=== PATIENT | female | born 1980 | race Caucasian/White ===

== ENCOUNTER 2017-01-31 19:52 | Inpatient (IN) ==
[2017-01-31] MEDS ORDERED: Ondansetron 4 MG/2 ML VIAL IVP ONE (23:00)
[2017-01-31] MEDS ORDERED: *HR* HYDROmorphone (PF) 1 MG/ML SYRINGE IVP ONE (23:00)
[2017-01-31] MEDS ORDERED: 0.9 % Sodium Chloride 1,000 ML IVC ONE ×2 (23:00→23:52)
[2017-01-31] MEDS ORDERED: Hyoscyamine 0.5 MG/ML MLS IVP ONE (23:02)
--- NOTE | 2017-01-31 23:04 | Emergency Department Note ---
Disposition Clinical Impression: Incarcerated ventral hernia, Hyperglycemia Abdominal pain Qualifiers: Abdominal location: unspecified location Qualified Code(s): R10.9 - Unspecified abdominal pain Disposition: Admitted As Inpatient Condition: Fair General Adult HPI - General Chief complaint: ED Abdominal Pain Stated complaint: n/v/fever x3 days Time Seen by Provider: 01/31/17 22:56 Source: patient Limitations: no limitations Nursing Notes Reviewed: Yes Vital Signs Reviewed: Yes - History of Present Illness HPI Narrative: 36-year-old female who reports that she has had 3 days of nausea with vomiting and diarrhea and abdominal pain. She reports the pain is in her epigastrium. She denies having any blood in her vomit. She reports decrease in the amount of urination. She reports that she is a diabetic but does not take any medications for it. She reports that she has not been taking her medications because she has had a sick child that she is taking care of. She is not taking medications for months. She does report a prior fever but not today. She states the pain is not constant but is intermittent. She states that it hurts worse if she eats. Radiation: non-radiation Pain Severity: severe Pain Scale: 8 Consistency: intermittent Improves with: nothing Worsens with: eating Associated symptoms: Reports: denies other symptoms Treatments Prior to Arrival: none - Related Data Home Medications Medication Instructions Recorded Confirmed No Known Home Drugs 02/01/17 02/01/17 Allergies Allergy/AdvReac Type Severity Reaction Status Date / Time Penicillins Allergy Rash Verified 01/31/17 20:05 IVP Dye Allergy Rash Uncoded 01/31/17 20:05 All systems ED: reviewed and negative except as stated. Constitutional: Denies: fever Eyes: Denies: vision change Cardiovascular: Denies: chest pain Respiratory: Denies: cough Gastrointestinal: Reports: abdominal pain, nausea, vomiting, diarrhea Genitourinary: Denies: dysuria Integumentary: Denies: rash Endocrine: Reports: fatigue Past Medical History - Past Medical History Medical history: Reports: diabetes Surgical history: Reports: Psychiatric history: Reports: no psych history [employer] history: Reports: spontaneous - Social History Smoking Status: Current every day smoker Smokeless Tobacco Status: No Alcohol use: Reports: none Drug use: Reports: none Physical Exam - General Limitations: no limitations General appearance: alert, in no apparent distress - Head Head exam: atraumatic - Eye Eye exam: Present: normal appearance, PERRL - ENT ENT exam: normal exam, normal oropharynx - Neck Neck exam: Present: normal inspection - Chest Chest inspection: Present: normal inspection - Respiratory Respiratory exam: Present: normal lung sounds bilaterally. Absent: respiratory distress - Cardiovascular Cardiovascular exam: Present: regular rate, normal rhythm - Abdominal Exam Abdominal exam: Present: soft, tenderness (epigastrum), normal bowel sounds. Absent: guarding, rebound - Extremities Exam Extremities exam: Present: normal inspection - Back Exam Back exam: Present: normal inspection - Neurological Exam Neurological exam: Present: alert, oriented X3 - Psychiatric Psychiatric exam: Present: normal affect, normal mood - Skin Skin exam: Present: warm, dry Course Course Narrative: Mild tachycardia w/ N/V/D. She does have significant abdominal pain on palpation, specifically midline. Will give IVF and obtain CT/labwork. She is in no acute distress. Anion gap of 11. large amount of ketones. CT shows likely incarcerated hernia with vascular compromise. I called and spoke with Dr Wong with surgery, he will come and evaluate the patient. Will obtain a lactate and start antibiotics. Vital Signs Temperature 97.6 F 01/31/17 20:05 Pulse Rate 101 01/31/17 20:05 Respiratory Rate 20 01/31/17 20:05 Blood Pressure 148/109 01/31/17 20:05 O2 Sat by Pulse Oximetry 99 01/31/17 20:05 Temperature 98.4 F 02/02/17 23:25 Pulse Rate 79 02/02/17 23:25 Respiratory Rate 16 02/02/17 23:25 Blood Pressure 139/89 02/02/17 23:25 O2 Sat by Pulse Oximetry 95 02/02/17 23:25 Oxygen Delivery Oxygen Delivery Room Air Medical Decision Making - Medical Records Medical records reviewed: Yes I reviewed the patient's medical records. - Lab Data Lab results reviewed: Yes I reviewed the patient's lab results. Result diagrams: 02/02/17 05:10 02/02/17 20:30 Lab Results 01/31/17 01/31/17 01/31/17 Range/Units 20:15 23:07 23:18 WBC 11.2 H (4.3-11.1) K/mcL RBC 6.23 H (3.82-4.97) M/mcL Hgb 17.3 H (11.5-15.4) g/dL Hct 52.0 H (35.3-44.9) % MCV 83.5 (83.0-100.0) fL MCH 27.8 L (28.0-33.3) pg MCHC 33.3 (31.6-35.5) g/dL RDW 13.0 (11.5-14.5) % Plt Count 421 H (140-400) K/mcL MPV 9.5 (9.4-12.4) fL Immature Gran % 0.5 (0-4) % Seg Neutrophils % 72.7 % Lymphocytes % 18.7 % Monocytes % 6.0 % Eosinophils % 1.7 % Basophils % 0.4 % Neutrophils # 8.2 (1.6-8.9) K/mcL Lymphocytes # 2.1 (0.6-4.6) K/mcL Monocytes # 0.7 (0.0-1.3) K/mcL Eosinophils # 0.2 (0.0-0.6) K/mcL Basophils # 0.0 (0.0-0.2) K/mcL VBG pH (7.32-7.42) pH Units VBG pCO2 (41-51) mmHg VBG pO2 (25-50) mmHg VBG HCO3 (21-27) mEq/L Sodium (136-145) mEq/L Potassium (3.5-5.1) mEq/L Chloride (98-107) mEq/L Carbon Dioxide (23-29) mEq/L BUN (6-20) mg/dL Creatinine (0.60-1.20) mg/dL Est GFR ( Amer) (> 60) Est GFR (Non-Af Amer) (> 60) BUN/Creatinine Ratio (6-26) Glucose (70-105) mg/dL POC Glucose 257 H (58-89) Est Mean Plasma Glucose mg/dl Hemoglobin A1c ( - 5.6) % Calculated Osmolality (280-300) Lactic Acid (0.5-2.2) mmol/L Calcium (8.6-10.3) mg/dL Magnesium (1.6-2.6) mg/dL Total Bilirubin (0.3-1.0) mg/dL Direct Bilirubin (0.0-0.2) mg/dL Indirect Bilirubin (0.0-1.2) mg/dL AST (13-39) Units/L ALT (7-52) Units/L Alkaline Phosphatase (34-104) Units/L Serum Total Protein (6.4-8.9) g/dL Albumin (3.5-5.7) g/dL Globulin (2.4-3.5) g/dL Albumin/Globulin Ratio (1.1-2.2) Lipase (11-82) Units/L Beta-Hydroxybutyric Acd (0.02-0.27) mmol/L Serum , Qual (Negative) Urine Color Yellow (Yellow) Urine Clarity Turbid A (Clear) Urine pH 5.5 (5.0-8.0) pH Units Ur Specific [place] > 1.030 H (1.010-1.025) Urine Protein 30 H (Neg-Trace) mg/dL Urine Glucose (UA) >=1000 H (Normal) mg/dL Urine Ketones >=160 H (Negative) mg/dL Urine Blood Negative (Negative) Urine Nitrite Negative (Negative) Urine Bilirubin Negative (Negative) Urine Urobilinogen Normal (Normal) mg/dL Ur Leukocyte Esterase Negative (Negative) Urine Microscopic RBC 0-3 (0-3) per hpf Urine Microscopic WBC 15-30 H (0-3) per hpf Ur Squamous Epith Cells Many H (None-Few) per lpf Urine Bacteria Many H (None-Few) per hpf Hyaline Casts None Seen (None-Few) per lpf Urine Yeast Moderate H (None Seen) per hpf Ur Culture Indicated? NO (NO) 01/31/17 01/31/17 01/31/17 Range/Units 23:18 23:18 23:18 WBC (4.3-11.1) K/mcL RBC (3.82-4.97) M/mcL Hgb (11.5-15.4) g/dL Hct (35.3-44.9) % MCV (83.0-100.0) fL MCH (28.0-33.3) pg MCHC (31.6-35.5) g/dL RDW (11.5-14.5) % Plt Count (140-400) K/mcL MPV (9.4-12.4) fL Immature Gran % (0-4) % Seg Neutrophils % % Lymphocytes % % Monocytes % % Eosinophils % % Basophils % % Neutrophils # (1.6-8.9) K/mcL Lymphocytes # (0.6-4.6) K/mcL Monocytes # (0.0-1.3) K/mcL Eosinophils # (0.0-0.6) K/mcL Basophils # (0.0-0.2) K/mcL VBG pH (7.32-7.42) pH Units VBG pCO2 (41-51) mmHg VBG pO2 (25-50) mmHg VBG HCO3 (21-27) mEq/L Sodium 131 L (136-145) mEq/L Potassium 4.2 (3.5-5.1) mEq/L Chloride 103 (98-107) mEq/L Carbon Dioxide 17 L (23-29) mEq/L BUN 13 (6-20) mg/dL Creatinine 0.54 L (0.60-1.20) mg/dL Est GFR ( Amer) > 60 (> 60) Est GFR (Non-Af Amer) > 60 (> 60) BUN/Creatinine Ratio 24 (6-26) Glucose 260 H (70-105) mg/dL POC Glucose (58-89) Est Mean Plasma Glucose mg/dl Hemoglobin A1c ( - 5.6) % Calculated Osmolality 281 (280-300) Lactic Acid (0.5-2.2) mmol/L Calcium 8.8 (8.6-10.3) mg/dL Magnesium (1.6-2.6) mg/dL Total Bilirubin 0.6 (0.3-1.0) mg/dL Direct Bilirubin 0.1 (0.0-0.2) mg/dL Indirect Bilirubin 0.5 (0.0-1.2) mg/dL AST 12 L (13-39) Units/L ALT 13 (7-52) Units/L Alkaline Phosphatase 75 (34-104) Units/L Serum Total Protein 6.5 (6.4-8.9) g/dL Albumin 3.6 (3.5-5.7) g/dL Globulin 2.9 (2.4-3.5) g/dL Albumin/Globulin Ratio 1.2 (1.1-2.2) Lipase 9 L (11-82) Units/L Beta-Hydroxybutyric Acd > 2.00 H (0.02-0.27) mmol/L Serum , Qual Negative (Negative) Urine Color (Yellow) Urine Clarity (Clear) Urine pH (5.0-8.0) pH Units Ur Specific [place] (1.010-1.025) Urine Protein (Neg-Trace) mg/dL Urine Glucose (UA) (Normal) mg/dL Urine Ketones (Negative) mg/dL Urine Blood (Negative) Urine Nitrite (Negative) Urine Bilirubin (Negative) Urine Urobilinogen (Normal) mg/dL Ur Leukocyte Esterase (Negative) Urine Microscopic RBC (0-3) per hpf Urine Microscopic WBC (0-3) per hpf Ur Squamous Epith Cells (None-Few) per lpf Urine Bacteria (None-Few) per hpf Hyaline Casts (None-Few) per lpf Urine Yeast (None Seen) per hpf Ur Culture Indicated? (NO) 02/01/17 02/01/17 02/01/17 Range/Units 00:06 00:55 06:52 WBC (4.3-11.1) K/mcL RBC (3.82-4.97) M/mcL Hgb (11.5-15.4) g/dL Hct (35.3-44.9) % MCV (83.0-100.0) fL MCH (28.0-33.3) pg MCHC (31.6-35.5) g/dL RDW (11.5-14.5) % Plt Count (140-400) K/mcL MPV (9.4-12.4) fL Immature Gran % (0-4) % Seg Neutrophils % % Lymphocytes % % Monocytes % % Eosinophils % % Basophils % % Neutrophils # (1.6-8.9) K/mcL Lymphocytes # (0.6-4.6) K/mcL Monocytes # (0.0-1.3) K/mcL Eosinophils # (0.0-0.6) K/mcL Basophils # (0.0-0.2) K/mcL VBG pH 7.27 L (7.32-7.42) pH Units VBG pCO2 44 (41-51) mmHg VBG pO2 40 (25-50) mmHg VBG HCO3 20 L (21-27) mEq/L Sodium (136-145) mEq/L Potassium (3.5-5.1) mEq/L Chloride (98-107) mEq/L Carbon Dioxide (23-29) mEq/L BUN (6-20) mg/dL Creatinine (0.60-1.20) mg/dL Est GFR ( Amer) (> 60) Est GFR (Non-Af Amer) (> 60) BUN/Creatinine Ratio (6-26) Glucose (70-105) mg/dL POC Glucose 266 H (58-89) Est Mean Plasma Glucose mg/dl Hemoglobin A1c ( - 5.6) % Calculated Osmolality (280-300) Lactic Acid 0.8 (0.5-2.2) mmol/L Calcium (8.6-10.3) mg/dL Magnesium (1.6-2.6) mg/dL Total Bilirubin (0.3-1.0) mg/dL Direct Bilirubin (0.0-0.2) mg/dL Indirect Bilirubin (0.0-1.2) mg/dL AST (13-39) Units/L ALT (7-52) Units/L Alkaline Phosphatase (34-104) Units/L Serum Total Protein (6.4-8.9) g/dL Albumin (3.5-5.7) g/dL Globulin (2.4-3.5) g/dL Albumin/Globulin Ratio (1.1-2.2) Lipase (11-82) Units/L Beta-Hydroxybutyric Acd (0.02-0.27) mmol/L Serum , Qual (Negative) Urine Color (Yellow) Urine Clarity (Clear) Urine pH (5.0-8.0) pH Units Ur Specific [place] (1.010-1.025) Urine Protein (Neg-Trace) mg/dL Urine Glucose (UA) (Normal) mg/dL Urine Ketones (Negative) mg/dL Urine Blood (Negative) Urine Nitrite (Negative) Urine Bilirubin (Negative) Urine Urobilinogen (Normal) mg/dL Ur Leukocyte Esterase (Negative) Urine Microscopic RBC (0-3) per hpf Urine Microscopic WBC (0-3) per hpf Ur Squamous Epith Cells (None-Few) per lpf Urine Bacteria (None-Few) per hpf Hyaline Casts (None-Few) per lpf Urine Yeast (None Seen) per hpf Ur Culture Indicated? (NO) 02/01/17 02/01/17 02/01/17 Range/Units 07:11 07:11 07:11 WBC (4.3-11.1) K/mcL RBC (3.82-4.97) M/mcL Hgb (11.5-15.4) g/dL Hct (35.3-44.9) % MCV (83.0-100.0) fL MCH (28.0-33.3) pg MCHC (31.6-35.5) g/dL RDW (11.5-14.5) % Plt Count (140-400) K/mcL MPV (9.4-12.4) fL Immature Gran % (0-4) % Seg Neutrophils % % Lymphocytes % % Monocytes % % Eosinophils % % Basophils % % Neutrophils # (1.6-8.9) K/mcL Lymphocytes # (0.6-4.6) K/mcL Monocytes # (0.0-1.3) K/mcL Eosinophils # (0.0-0.6) K/mcL Basophils # (0.0-0.2) K/mcL VBG pH (7.32-7.42) pH Units VBG pCO2 (41-51) mmHg VBG pO2 (25-50) mmHg VBG HCO3 (21-27) mEq/L Sodium 131 L (136-145) mEq/L Potassium 3.8 (3.5-5.1) mEq/L Chloride 105 (98-107) mEq/L Carbon Dioxide 17 L (23-29) mEq/L BUN 14 (6-20) mg/dL Creatinine 0.50 L (0.60-1.20) mg/dL Est GFR ( Amer) > 60 (> 60) Est GFR (Non-Af Amer) > 60 (> 60) BUN/Creatinine Ratio 28 H (6-26) Glucose 305 H (70-105) mg/dL POC Glucose (58-89) Est Mean Plasma Glucose 292 mg/dl Hemoglobin A1c 11.8 H ( - 5.6) % Calculated Osmolality 284 (280-300) Lactic Acid 0.5 (0.5-2.2) mmol/L Calcium 8.0 L (8.6-10.3) mg/dL Magnesium (1.6-2.6) mg/dL Total Bilirubin (0.3-1.0) mg/dL Direct Bilirubin (0.0-0.2) mg/dL Indirect Bilirubin (0.0-1.2) mg/dL AST (13-39) Units/L ALT (7-52) Units/L Alkaline Phosphatase (34-104) Units/L Serum Total Protein (6.4-8.9) g/dL Albumin (3.5-5.7) g/dL Globulin (2.4-3.5) g/dL Albumin/Globulin Ratio (1.1-2.2) Lipase (11-82) Units/L Beta-Hydroxybutyric Acd (0.02-0.27) mmol/L Serum , Qual (Negative) Urine Color (Yellow) Urine Clarity (Clear) Urine pH (5.0-8.0) pH Units Ur Specific [place] (1.010-1.025) Urine Protein (Neg-Trace) mg/dL Urine Glucose (UA) (Normal) mg/dL Urine Ketones (Negative) mg/dL Urine Blood (Negative) Urine Nitrite (Negative) Urine Bilirubin (Negative) Urine Urobilinogen (Normal) mg/dL Ur Leukocyte Esterase (Negative) Urine Microscopic RBC (0-3) per hpf Urine Microscopic WBC (0-3) per hpf Ur Squamous Epith Cells (None-Few) per lpf Urine Bacteria (None-Few) per hpf Hyaline Casts (None-Few) per lpf Urine Yeast (None Seen) per hpf Ur Culture Indicated? (NO) 02/01/17 02/01/17 02/01/17 Range/Units 11:39 17:16 20:46 WBC (4.3-11.1) K/mcL RBC (3.82-4.97) M/mcL Hgb (11.5-15.4) g/dL Hct (35.3-44.9) % MCV (83.0-100.0) fL MCH (28.0-33.3) pg MCHC (31.6-35.5) g/dL RDW (11.5-14.5) % Plt Count (140-400) K/mcL MPV (9.4-12.4) fL Immature Gran % (0-4) % Seg Neutrophils % % Lymphocytes % % Monocytes % % Eosinophils % % Basophils % % Neutrophils # (1.6-8.9) K/mcL Lymphocytes # (0.6-4.6) K/mcL Monocytes # (0.0-1.3) K/mcL Eosinophils # (0.0-0.6) K/mcL Basophils # (0.0-0.2) K/mcL VBG pH (7.32-7.42) pH Units VBG pCO2 (41-51) mmHg VBG pO2 (25-50) mmHg VBG HCO3 (21-27) mEq/L Sodium (136-145) mEq/L Potassium (3.5-5.1) mEq/L Chloride (98-107) mEq/L Carbon Dioxide (23-29) mEq/L BUN (6-20) mg/dL Creatinine (0.60-1.20) mg/dL Est GFR ( Amer) (> 60) Est GFR (Non-Af Amer) (> 60) BUN/Creatinine Ratio (6-26) Glucose (70-105) mg/dL POC Glucose 263 H 174 H 148 H (58-89) Est Mean Plasma Glucose mg/dl Hemoglobin A1c ( - 5.6) % Calculated Osmolality (280-300) Lactic Acid (0.5-2.2) mmol/L Calcium (8.6-10.3) mg/dL Magnesium (1.6-2.6) mg/dL Total Bilirubin (0.3-1.0) mg/dL Direct Bilirubin (0.0-0.2) mg/dL Indirect Bilirubin (0.0-1.2) mg/dL AST (13-39) Units/L ALT (7-52) Units/L Alkaline Phosphatase (34-104) Units/L Serum Total Protein (6.4-8.9) g/dL Albumin (3.5-5.7) g/dL Globulin (2.4-3.5) g/dL Albumin/Globulin Ratio (1.1-2.2) Lipase (11-82) Units/L Beta-Hydroxybutyric Acd (0.02-0.27) mmol/L Serum , Qual (Negative) Urine Color (Yellow) Urine Clarity (Clear) Urine pH (5.0-8.0) pH Units Ur Specific [place] (1.010-1.025) Urine Protein (Neg-Trace) mg/dL Urine Glucose (UA) (Normal) mg/dL Urine Ketones (Negative) mg/dL Urine Blood (Negative) Urine Nitrite (Negative) Urine Bilirubin (Negative) Urine Urobilinogen (Normal) mg/dL Ur Leukocyte Esterase (Negative) Urine Microscopic RBC (0-3) per hpf Urine Microscopic WBC (0-3) per hpf Ur Squamous Epith Cells (None-Few) per lpf Urine Bacteria (None-Few) per hpf Hyaline Casts (None-Few) per lpf Urine Yeast (None Seen) per hpf Ur Culture Indicated? (NO) 02/01/17 02/02/17 02/02/17 Range/Units 22:48 05:10 05:10 WBC 7.1 (4.3-11.1) K/mcL RBC 5.09 H (3.82-4.97) M/mcL Hgb 14.0 D (11.5-15.4) g/dL Hct 42.8 (35.3-44.9) % MCV 84.1 (83.0-100.0) fL MCH 27.5 L (28.0-33.3) pg MCHC 32.7 (31.6-35.5) g/dL RDW 13.3 (11.5-14.5) % Plt Count 306 (140-400) K/mcL MPV 9.5 (9.4-12.4) fL Immature Gran % 0.6 (0-4) % Seg Neutrophils % 69.3 % Lymphocytes % 18.8 % Monocytes % 9.3 % Eosinophils % 1.4 % Basophils % 0.6 % Neutrophils # 4.9 (1.6-8.9) K/mcL Lymphocytes # 1.3 (0.6-4.6) K/mcL Monocytes # 0.7 (0.0-1.3) K/mcL Eosinophils # 0.1 (0.0-0.6) K/mcL Basophils # 0.0 (0.0-0.2) K/mcL VBG pH (7.32-7.42) pH Units VBG pCO2 (41-51) mmHg VBG pO2 (25-50) mmHg VBG HCO3 (21-27) mEq/L Sodium 135 L (136-145) mEq/L Potassium 2.9 L (3.5-5.1) mEq/L Chloride 108 H (98-107) mEq/L Carbon Dioxide 19 L (23-29) mEq/L BUN 10 (6-20) mg/dL Creatinine 0.42 L (0.60-1.20) mg/dL Est GFR ( Amer) > 60 (> 60) Est GFR (Non-Af Amer) > 60 (> 60) BUN/Creatinine Ratio 24 (6-26) Glucose 172 H (70-105) mg/dL POC Glucose 141 H (58-89) Est Mean Plasma Glucose mg/dl Hemoglobin A1c ( - 5.6) % Calculated Osmolality 283 (280-300) Lactic Acid (0.5-2.2) mmol/L Calcium 8.0 L (8.6-10.3) mg/dL Magnesium 1.6 (1.6-2.6) mg/dL Total Bilirubin 0.4 (0.3-1.0) mg/dL Direct Bilirubin (0.0-0.2) mg/dL Indirect Bilirubin (0.0-1.2) mg/dL AST 8 L (13-39) Units/L ALT 8 (7-52) Units/L Alkaline Phosphatase 59 (34-104) Units/L Serum Total Protein 5.2 L (6.4-8.9) g/dL Albumin 2.9 L (3.5-5.7) g/dL Globulin 2.3 L (2.4-3.5) g/dL Albumin/Globulin Ratio 1.3 (1.1-2.2) Lipase (11-82) Units/L Beta-Hydroxybutyric Acd (0.02-0.27) mmol/L Serum , Qual (Negative) Urine Color (Yellow) Urine Clarity (Clear) Urine pH (5.0-8.0) pH Units Ur Specific [place] (1.010-1.025) Urine Protein (Neg-Trace) mg/dL Urine Glucose (UA) (Normal) mg/dL Urine Ketones (Negative) mg/dL Urine Blood (Negative) Urine Nitrite (Negative) Urine Bilirubin (Negative) Urine Urobilinogen (Normal) mg/dL Ur Leukocyte Esterase (Negative) Urine Microscopic RBC (0-3) per hpf Urine Microscopic WBC (0-3) per hpf Ur Squamous Epith Cells (None-Few) per lpf Urine Bacteria (None-Few) per hpf Hyaline Casts (None-Few) per lpf Urine Yeast (None Seen) per hpf Ur Culture Indicated? (NO) 02/02/17 02/02/17 Range/Units 05:41 10:58 WBC (4.3-11.1) K/mcL RBC (3.82-4.97) M/mcL Hgb (11.5-15.4) g/dL Hct (35.3-44.9) % MCV (83.0-100.0) fL MCH (28.0-33.3) pg MCHC (31.6-35.5) g/dL RDW (11.5-14.5) % Plt Count (140-400) K/mcL MPV (9.4-12.4) fL Immature Gran % (0-4) % Seg Neutrophils % % Lymphocytes % % Monocytes % % Eosinophils % % Basophils % % Neutrophils # (1.6-8.9) K/mcL Lymphocytes # (0.6-4.6) K/mcL Monocytes # (0.0-1.3) K/mcL Eosinophils # (0.0-0.6) K/mcL Basophils # (0.0-0.2) K/mcL VBG pH (7.32-7.42) pH Units VBG pCO2 (41-51) mmHg VBG pO2 (25-50) mmHg VBG HCO3 (21-27) mEq/L Sodium (136-145) mEq/L Potassium (3.5-5.1) mEq/L Chloride (98-107) mEq/L Carbon Dioxide (23-29) mEq/L BUN (6-20) mg/dL Creatinine (0.60-1.20) mg/dL Est GFR ( Amer) (> 60) Est GFR (Non-Af Amer) (> 60) BUN/Creatinine Ratio (6-26) Glucose (70-105) mg/dL POC Glucose 168 H 139 H (58-89) Est Mean Plasma Glucose mg/dl Hemoglobin A1c ( - 5.6) % Calculated Osmolality (280-300) Lactic Acid (0.5-2.2) mmol/L Calcium (8.6-10.3) mg/dL Magnesium (1.6-2.6) mg/dL Total Bilirubin (0.3-1.0) mg/dL Direct Bilirubin (0.0-0.2) mg/dL Indirect Bilirubin (0.0-1.2) mg/dL AST (13-39) Units/L ALT (7-52) Units/L Alkaline Phosphatase (34-104) Units/L Serum Total Protein (6.4-8.9) g/dL Albumin (3.5-5.7) g/dL Globulin (2.4-3.5) g/dL Albumin/Globulin Ratio (1.1-2.2) Lipase (11-82) Units/L Beta-Hydroxybutyric Acd (0.02-0.27) mmol/L Serum , Qual (Negative) Urine Color (Yellow) Urine Clarity (Clear) Urine pH (5.0-8.0) pH Units Ur Specific [place] (1.010-1.025) Urine Protein (Neg-Trace) mg/dL Urine Glucose (UA) (Normal) mg/dL Urine Ketones (Negative) mg/dL Urine Blood (Negative) Urine Nitrite (Negative) Urine Bilirubin (Negative) Urine Urobilinogen (Normal) mg/dL Ur Leukocyte Esterase (Negative) Urine Microscopic RBC (0-3) per hpf Urine Microscopic WBC (0-3) per hpf Ur Squamous Epith Cells (None-Few) per lpf Urine Bacteria (None-Few) per hpf Hyaline Casts (None-Few) per lpf Urine Yeast (None Seen) per hpf Ur Culture Indicated? (NO) - Radiology Data Radiology results reviewed: Yes I reviewed the patient's radiology results. Attestation Statement - Attestation Attestation: I examined this patient and my medical decision-making was reviewed with the Resident Physician. I agree with the documented findings, disposition and treatment plan as described except to the extent set forth below. Incarcerated hernia. Patient be transported directly to the operating room with Dr. Wong. Patient stable at time of transfer. Antibiotic therapy initiated. IV fluids initiated as well.
[2017-01-31 23:19] LABS: Bilirubin,Urine Negative (Negative); Blood,Urine Negative (Negative); Clarity,Urine Turbid (Clear); Color,Urine Yellow (Yellow); Glucose,Urine (UA) >=1000 mg/dL (Normal); Ketones,Urine >=160 mg/dL (Negative); Leukocyte Esterase,Urine Negative (Negative); Nitrite,Urine Negative (Negative); PH,Urine 5.5 pH Units (5.0-8.0); Protein,Urine 30 mg/dL (Neg-Trace); Specific Gravity,Urine > 1.030 (1.010-1.025); Urobilinogen,Urine Normal (Normal)
[2017-01-31 23:22] LABS: Bacteria,Urine Many per hpf (None-Few); RBC,Urine 0-3 per hpf (0-3); Squamous Epithelial Cell,Urine Many per lpf (None-Few); WBC,Urine 15-30 per hpf (0-3)
[2017-01-31 23:31] LABS: Basophils % 0.4 %; Eosinophils # 0.2 K/mcL (0.0-0.6); Eosinophils % 1.7 %; Hemoglobin 17.3 g/dL (11.5-15.4); Immature Granulocytes % 0.5 % (0-4); Lymphocytes # 2.1 K/mcL (0.6-4.6); Lymphocytes % 18.7 %; Mean Corpuscular HGB Conc 33.3 g/dL (31.6-35.5); Mean Corpuscular Hemoglobin 27.8 pg (28.0-33.3); Mean Corpuscular Volume 83.5 fL (83.0-100.0); Mean Platelet Volume 9.5 fL (9.4-12.4); Monocytes # 0.7 K/mcL (0.0-1.3); Neutrophils # 8.2 K/mcL (1.6-8.9); Platelet Count 421 K/mcL (140-400); Red Blood Count 6.23 M/mcL (3.82-4.97); Segmented Neutrophils % 72.7 %
[2017-01-31 23:33] LABS: Hyaline Casts,Urine None Seen per lpf (None-Few); Yeast,Urine Moderate per hpf (None Seen)
[2017-01-31 23:47] LABS: Alanine Aminotransferase 13 Units/L (7-52); Albumin 3.6 g/dL (3.5-5.7); Albumin/Globulin Ratio 1.2 (1.1-2.2); Alkaline Phosphatase 75 Units/L (34-104); Aspartate Amino Transferase 12 Units/L (13-39); BUN/Creatinine Ratio 24 (6-26); Bilirubin,Direct 0.1 mg/dL (0.0-0.2); Bilirubin,Indirect 0.5 mg/dL (0.0-1.2); Bilirubin,Total 0.6 mg/dL (0.3-1.0); Blood Urea Nitrogen 13 mg/dL (6-20); Calcium 8.8 mg/dL (8.6-10.3); Carbon Dioxide 17 mEq/L (23-29); Chloride 103 mEq/L (98-107); Globulin 2.9 g/dL (2.4-3.5); Glucose 260 mg/dL (70-105); Lipase 9 Units/L (11-82); Osmolality,Calculated 281 (280-300); Potassium 4.2 mEq/L (3.5-5.1); Sodium 131 mEq/L (136-145); Total Protein 6.5 g/dL (6.4-8.9); eGFR For African Americans > 60 (> 60); eGFR For Non-African Americans > 60 (> 60)
[2017-02-01 00:09] LABS: VBG HCO3 20 mEq/L (21-27); VBG PCO2 44 mmHg (41-51); VBG PH 7.27 pH Units (7.32-7.42); VBG PO2 40 mmHg (25-50)
[2017-02-01] MEDS ORDERED: Ertapenem 1,000 MG in Water for inj. (sterile) 10 ML IVP SCH (01:00)
[2017-02-01] MEDS ORDERED: 0.9 % Sodium Chloride 1,000 ML IVC SCH ×3 (01:00→06:37)
--- NOTE | 2017-02-01 02:40 | General Surg History&Physical ---
Date of Encounter: 02/01/17 Time of Encounter: 02:38 Assessment and Plan (1) Incarcerated ventral hernia Current Visit: Yes Status: Acute 36F with incarcerated ventral hernia on imaging. All images were personally seend and evaluted by me. There is a concern for strangulation; However, due to her responsibilities at home, I will attempt laparoscopic repair to limit the incision needed. Should there be ischemic I will convert to open - NPO - IVF - abx - consent for OR; admit to surgery The assessment and plan as outlined above was discussed with the patient and/or family members who expressed understanding and agreement. All questions were answered. (2) Hyperglycemia Current Visit: Yes Status: Acute Difficutl to know if it is related to underlying diabetes or 3 day history of PO intolerance combined with dehydration and sepsis - trend glucose; -ISS if needed - will treat potential septic cause with surgery and antibiotics The assessment and plan as outlined above was discussed with the patient and/or family members who expressed understanding and agreement. All questions were answered. History of Present Illness Chief complaint: abdominal pain HPI: Ms. Oquendo is a 36 year old female with a PMH significant for poorly controlled diabetes who presents with 3 day history of worsening abdominal pain with associated PO intolerance, nausea, vomiting and fevers (temp 102 one day prior to admission). She has a long standing history of abdominal pain which she believed to be related to peptic ulcer disease. WHen asked why she took so long before coming to the ED, her states that they have a child with complex medical problems at home. She presented to the ED for further evaluation. Past Med Surg Social Fam HX - Past Medical History Medical history: diabetes Psychiatric history: no psych history - Past Surgical History Surgical History: - Social History Smoking Status: Current every day smoker Smokeless Tobacco Status: No Alcohol use: none Drug use: none - Additional Family History Additional family history: non contributory Medications and Allergies Cephalexin [Keflex] 500 mg PO BID 12/20/14 [History] Insulin LISPRO [HumaLOG] 0 units SQ TIDWM 12/20/14 [History] Insulin NPH [HumuLIN NPH] 28 unit SQ 1-2XD 12/20/14 [History] Metformin [Glucophage] 1,000 mg PO BIDWM 12/20/14 [History] Vit/FA 1 each PO DAILY 12/20/14 [History] Mupirocin [Bactroban Oint] 1 appl TP BID #1 tube 05/14/15 [Rx] cephALEXin [Keflex] 500 mg PO QID #40 capsule 05/14/15 [Rx] 3 Allergy/AdvReac Type Severity Reaction Status Date / Time Penicillins Allergy Rash Verified 01/31/17 20:05 IVP Dye Allergy Rash Uncoded 01/31/17 20:05 Review of Systems All systems PM: A 10-system review of systems was performed and is negative for pertinent findings except as documented above in the HPI. General Surgery Exam Initial Vital Signs Temp Pulse Resp BP Pulse Ox 97.6 F 101 20 148/109 99 01/31/17 20:05 01/31/17 20:05 01/31/17 20:05 01/31/17 20:05 01/31/17 20:05 - General physical appearance well developed, no distress, moderate pain - Eyes normal ocular movement - ENT normocephalic - Neck no lymphadectomy - Respiratory normal expansion, normal respiratory effort - Cardiovascular Cardiovascular exam: Present: RRR - Abdomen Abdomen general surgery: Present: soft, tender (in mid abdomen and epigastric region) Hernia: Present: none (not appreciated on exam) - Integumentary Integumentary general surgery: Present: warm and dry - Neurologic Present: CN 2-12 grossly intact - Musculoskeletal Present: other (FROm in UE/LE bilaterally) - Psychiatric Psychiatric general surgery: Present: A&Ox3 Results - Labs 01/31/17 23:18 01/31/17 23:18 Abnormal lab results WBC 11.2 K/mcL (4.3-11.1) H 01/31/17 23:18 RBC 6.23 M/mcL (3.82-4.97) H 01/31/17 23:18 Hgb 17.3 g/dL (11.5-15.4) H 01/31/17 23:18 Hct 52.0 % (35.3-44.9) H 01/31/17 23:18 MCH 27.8 pg (28.0-33.3) L 01/31/17 23:18 Plt Count 421 K/mcL (140-400) H 01/31/17 23:18 VBG pH 7.27 pH Units (7.32-7.42) L 02/01/17 00:06 VBG HCO3 20 mEq/L (21-27) L 02/01/17 00:06 Sodium 131 mEq/L (136-145) L 01/31/17 23:18 Carbon Dioxide 17 mEq/L (23-29) L 01/31/17 23:18 Creatinine 0.54 mg/dL (0.60-1.20) L 01/31/17 23:18 Glucose 260 mg/dL (70-105) H 01/31/17 23:18 POC Glucose 257 (58-89) H 01/31/17 20:15 AST 12 Units/L (13-39) L 01/31/17 23:18 Lipase 9 Units/L (11-82) L 01/31/17 23:18 Beta-Hydroxybutyric Acd > 2.00 mmol/L (0.02-0.27) H 01/31/17 23:18 Urine Clarity Turbid (Clear) A 01/31/17 23:07 Ur Specific [place] > 1.030 (1.010-1.025) H 01/31/17 23:07 Urine Protein 30 mg/dL (Neg-Trace) H 01/31/17 23:07 Urine Glucose (UA) >=1000 mg/dL (Normal) H 01/31/17 23:07 Urine Ketones >=160 mg/dL (Negative) H 01/31/17 23:07 Urine Microscopic WBC 15-30 per hpf (0-3) H 01/31/17 23:07 Ur Squamous Epith Cells Many per lpf (None-Few) H 01/31/17 23:07 Urine Bacteria Many per hpf (None-Few) H 01/31/17 23:07 Urine Yeast Moderate per hpf (None Seen) H 01/31/17 23:07 All other labs normal. - Imaging CT scan - abdomen: report reviewed, image reviewed CT scan - pelvis: report reviewed, image reviewed
[2017-02-01] MEDS ORDERED: Albuterol 2.5 MG/3 ML NEBULIZER ONE (02:43)
[2017-02-01] MEDS ORDERED: Albuterol 2.5 MG/3 ML NEBULIZER IH ONE (02:49)
--- NOTE | 2017-02-01 02:57 | Anesthesia Evaluation PreOp ---
Date of Encounter: 02/01/17 Time of Encounter: 02:55 - Past History Planned Operation: Laparoscopic Ventral Hernia Repair Cardiac History: Denies any Significant Hx Pulmonary History: Smoker (19 years), Snore AUTOMOTIVE ASSEMBLER History: Denies Any Significant HX Other Medical History: Diabetes Type II, Other (obesity BMI=41.2) Anesthesia History: No Prior Anesthetic Complications, Past Anesthesia Test: Negative (01/31/2017) Alcohol Use: none Drug use: none Medications and Allergies Cephalexin [Keflex] 500 mg PO BID 12/20/14 [History] Insulin LISPRO [HumaLOG] 0 units SQ TIDWM 12/20/14 [History] Insulin NPH [HumuLIN NPH] 28 unit SQ 1-2XD 12/20/14 [History] Metformin [Glucophage] 1,000 mg PO BIDWM 12/20/14 [History] Vit/FA 1 each PO DAILY 12/20/14 [History] Mupirocin [Bactroban Oint] 1 appl TP BID #1 tube 05/14/15 [Rx] cephALEXin [Keflex] 500 mg PO QID #40 capsule 05/14/15 [Rx] 3 Allergy/AdvReac Type Severity Reaction Status Date / Time Penicillins Allergy Rash Verified 01/31/17 20:05 IVP Dye Allergy Rash Uncoded 01/31/17 20:05 - Meds/Allergy Pre-op Review Medications Reviewed: Yes Allergies Reviewed: Yes Beta Blockers on Current Med List: No Anesthesia Results - Labs 01/31/17 23:18 01/31/17 23:18 Laboratory Tests 01/31/17 23:18 Serum , Qual Negative - Imaging EKG: report reviewed (06/26/2014 SINUS BRADYCARDIA WITH SINUS ARRHYTHMIA MINIMAL ST DEPRESSION ANTERIOR LEADS) Anesthesia Exam Vital Signs/O2 Sat, Most Current Temp Pulse Resp BP Pulse Ox 97.6 F 81 16 130/92 96 01/31/17 20:05 02/01/17 00:30 02/01/17 00:30 02/01/17 00:30 02/01/17 00:30 Blood glucose: 232 Height: 5'4''/1.63 m Weight: 240 lbs/108.9 kg NPO (# of Hours): 4 since water Pain Scale: 6 Pain Scale Used: Numeric (1 - 10) - HEENT Pupil (Motor): EOMI Mallampati: III Teeth: Poor dentition (numerous broken teeth) Oral Opening: Greater than 3 - AUTOMOTIVE ASSEMBLER LOC: Oriented AUTOMOTIVE ASSEMBLER Motor: Normal RUE, Normal LUE, Normal RLE, Normal LLE, Normal Face AUTOMOTIVE ASSEMBLER Sensory: Normal: RUE, LUE, RLE, LLE, Face - Cardiac Rhythm: Regular Murmur: None - Pulmonary Breath Sounds: bilateral Clear Respiratory Effort: Symmetrical Anesthesia Assess/Plan ASA Score: 3 Modified Luis Alberto Scale for Level of Consciousness: Cooperative, oriented, and tranquil Anesthetic Plan: General Monitoring Plan: Standard Monitors Recovery Plan: PACU
[2017-02-01] MEDS ORDERED: *HR* HYDROmorphone (PF) 1 MG/ML SYRINGE IVP PRN (03:00)
[2017-02-01] MEDS ORDERED: *HR* FentaNYL (PF) 100 MCG/2 ML VIAL ONE (03:03)
[2017-02-01] MEDS ORDERED: *HR* Midazolam HCl 2 MG/2 ML VIAL ONE (03:04)
[2017-02-01] MEDS ORDERED: *HR* Rocuronium Bromide 50 MG/5 ML VIAL ONE (03:04)
[2017-02-01] MEDS ORDERED: Lidocaine -MPF 2% 2 ML VIAL ONE (03:04)
[2017-02-01] MEDS ORDERED: *HR* Propofol 200 MG/20 ML VIAL IVP ONE (03:04)
[2017-02-01] MEDS ORDERED: Clindamycin 900 MG/50 ML 0 MG/0 ML IV.SOLN IVPB ONE (03:11)
[2017-02-01] MEDS ORDERED: *HR* Succinylcholine 200 MG/10 ML VIAL IVP ONE (04:08)
[2017-02-01] MEDS ORDERED: *HR* HYDROmorphone 2 MG/ML SYRINGE ONE (04:44)
[2017-02-01] MEDS ORDERED: Ondansetron 4 MG/2 ML VIAL ONE (05:21)
[2017-02-01] MEDS ORDERED: Neostigmine Methylsulfate 3 MG/3 ML SYRINGE ONE (05:21)
[2017-02-01] MEDS ORDERED: Dexamethasone 4 MG/ML VIAL ONE (05:21)
--- NOTE | 2017-02-01 05:52 | Operative Note ---
Date of procedure: 02/01/17 Pre-op diagnosis: incisional hernia, strangulated bowel Post-op diagnosis: other (incisional hernia, incarcerated bowel, non strangulated) Procedure: laparoscopic incisional hernia repair Implants: 21cm x26cm mesh Complications: small serosal tear to bowel Anesthesia: GETA Local Anesthetics: 0.5% Sensorcaine HCL SubQ (cc) Surgeon: John Wong Was there an malt specifications control assistant present: Yes Assistant In Nursing: Katie Still Estimated blood loss (cc): 10 Specimen: none Condition: stable Disposition: PACU Procedure in Detail: Patient was brought into the operating room suite. Mechanical DVT prophylaxis was placed. The patient underwent smooth induction of anesthesia. Preoperative antibiotics were given. The patient was prepped and draped in the usual fashion in the supine position. A time out was held identifying the correct patient, pathology, physician, and procedure. A 10mm incision was made in the LUQ. Using the visiport we entered into the abdomen. A 5mm port was placed in the Left midabdomen and left lower quadrant. I was able to identify the incisional hernia right away. It measured approximately [id number],. It was at the same incision where she had prior C- sections performed. I was able to reduce the bowel contained within the hernia. There was no evidence of non viable or compromised/ischemic/infarcted tissue or bowel. I then inserted the circular mesh with a vicryl suture in the center of it and on the four sides. Using the itzel-brush closure device I was able to retrieve the mesh by grasping the vicryl suture and bringing it through the abdominal wall, thereby bring the mesh in close proximity to the intraabdominal wall. I was able to see that I did have good hernia coverage of at least 3cm on all sides. I then used the absorbable tacking instrument to insert tacks into the mesh edges approximately 1cm apart. I was content with the mesh placement. I also excised the excess mesh that was not needed along the inferior portion of the hernia I then used the itzel brush device to close the 10mm port site in a figure of 8 fashion using a vicryl suture. Of note, prior to this, I did retrieve the contents of the hernia in the endocatch bag. I then concluded the procedure and ended the laparoscopic portion. I closed all skin incision with interrupted 4-0 vicryl sutures and sealed them with dermabond. The patient tolerated the procedure and was escorted to pacu in stable condition.
--- NOTE | 2017-02-01 06:32 | Anesthesia Evaluation Post Op ---
Date of Encounter: 02/01/17 Time of Encounter: 06:32 - Vital Signs Vital Signs: Vital Signs/O2 Sat, Most Current Temp Pulse Resp BP Pulse Ox 98.4 F 85 20 133/80 97 02/01/17 06:24 02/01/17 06:24 02/01/17 06:24 02/01/17 06:24 02/01/17 06:24 - Lungs Lungs: Clear Ascult./Percussion - Airway Airway: Non-obstructed - Cardiovascular Regular Rate - Mental Status Mental Status: Asleep with brisk response to light stimulation - Pain Pain Scale: 3 Pain Scale used: Numeric (1 - 10) - Nausea Vomiting Nausea Vomiting: Not Present - Hydration Hydration: Ice chips, Has not voided - Discharge PostOp Status: Transfer Patient to floor
[2017-02-01] MEDS ORDERED: Insulin LISPRO 300 UNITS/3 ML VIAL SQ SCH (06:37)
[2017-02-01] MEDS ORDERED: D5% in Water 1,000 ML IVC PRN ×2 (06:37→15:34)
[2017-02-01] MEDS ORDERED: 0.9 % Sodium Chloride 1,000 ML IVC ONE (06:37)
[2017-02-01] MEDS ORDERED: Dextrose Gel 15 GM/37.5 ML TUBE PO PRN ×4 (06:37→15:34)
[2017-02-01] MEDS ORDERED: *HR* Dextrose 50 % in Water (Syg) 50 ML SYRINGE IVP PRN ×2 (06:37→15:34)
[2017-02-01] MEDS: *HR* HYDROmorphone (PF) 1 MG/ML SYRINGE IVP PRN ×5 (06:59→22:49)
[2017-02-01] MEDS: 0.9 % Sodium Chloride 1,000 ML IVC SCH ×3 (07:00→22:48)
[2017-02-01 07:31] LABS: BUN/Creatinine Ratio 28 (6-26); Blood Urea Nitrogen 14 mg/dL (6-20); Carbon Dioxide 17 mEq/L (23-29); Chloride 105 mEq/L (98-107); Glucose 305 mg/dL (70-105); Osmolality,Calculated 284 (280-300); Potassium 3.8 mEq/L (3.5-5.1); Sodium 131 mEq/L (136-145); eGFR For African Americans > 60 (> 60); eGFR For Non-African Americans > 60 (> 60)
[2017-02-01 07:43] LABS: Hemoglobin A1C 11.8 %
[2017-02-01] MEDS ORDERED: MetroNIDAZOLE 500 MG/100 ML 500 MG/100 ML BAG IVPB SCH (08:00)
[2017-02-01] MEDS ORDERED: FLUARIX QUAD 2017-18 36MOS UP/PF 0.5 ML SYRINGE IM ONE (08:54)
[2017-02-01] MEDS ORDERED: Levofloxacin 750 MG/150 ML 750 MG/150 ML BAG IVPB SCH (09:00)
[2017-02-01] MEDS: Insulin LISPRO 300 UNITS/3 ML VIAL SQ SCH ×3 (11:49→23:20)
--- NOTE | 2017-02-01 13:00 | General Surgery Progress Note ---
Date of Encounter: 02/01/17 Time of Encounter: 12:57 - Assessment and Plan (1) Incarcerated ventral hernia Current Visit: Yes Status: Acute 36F POD #1 s/p laparoscopic incisional hernia repair 2/2 incarcerated hernia; bowel was involved, non strangulated; no bowel resection required; - cont with current pain regimen - okay for ice chips only; - will await return of bowel function prior to advancing diet - activity as tolerated - cont IVF (2) Hyperglycemia Current Visit: Yes Status: Acute HbA1 @ 11.8 - poorly controlled - med strength ISS - consult to hospitalist for control of blood sugars and other medical problems ; do not want patient going into DKA - lengthy discussion with patient concerning control of blood sugars in regard to her hernia repair - repeat labs in AM; Subjective Patient reports: no new complaints, feels better, still having pain, afebrile Objective Vital Signs - Last 8 Hours Temp Pulse Resp BP Pulse Ox 02/01/17 11:40 98.1 F 81 18 110/74 95 02/01/17 09:34 98.2 F 82 16 120/76 94 02/01/17 08:44 94 02/01/17 08:33 98.4 F 91 16 117/75 94 02/01/17 07:30 98.0 F 96 16 108/66 94 02/01/17 07:09 97.9 F 83 15 119/75 92 02/01/17 06:41 97.9 F 85 15 121/80 93 02/01/17 06:24 98.4 F 85 20 133/80 97 02/01/17 06:14 97.1 F L 99 20 133/84 97 02/01/17 06:04 72 21 134/73 97 02/01/17 05:54 71 20 128/71 97 02/01/17 05:44 98.0 F 67 22 125/65 97 Intake and Output 01/31/17 02/01/17 02/01/17 23:59 07:59 15:59 Intake Total 0 / 0 Output Total 700 / 700 Balance -20 / -20 -700 / -700 Intake: Oral 0 / 0 Output: Urine 0 / 0 700 / 700 Estimated Blood Loss Other: Meal NPO Percent of Meal Consumed 0% Blood Glucose* 266 263 - General physical appearance well developed, well nourished, no distress - ENT normocephalic - Neck Neck exam: no lymphadectomy - Respiratory normal expansion, normal respiratory effort - Cardiovascular Cardiovascular exam: Present: RRR - Abdomen Abdomen: Present: soft, tender (along incisions; non peritoneal) - Incision Incision: Present: clean and dry, intact - Integumentary no rash - Neurologic CN 2-12 grossly intact - Psychiatric oriented to time, oriented to person, oriented to place - Labs 01/31/17 23:18 02/01/17 07:11 Diabetes panel 02/01/17 02/01/17 Range/Units 07:11 07:11 Sodium 131 L (136-145) mEq/L Potassium 3.8 (3.5-5.1) mEq/L Chloride 105 (98-107) mEq/L Carbon Dioxide 17 L (23-29) mEq/L BUN 14 (6-20) mg/dL Creatinine 0.50 L (0.60-1.20) mg/dL Glucose 305 H (70-105) mg/dL Hemoglobin A1c 11.8 H ( - 5.6) % Calcium 8.0 L (8.6-10.3) mg/dL Calcium panel 02/01/17 Range/Units 07:11 Calcium 8.0 L (8.6-10.3) mg/dL Pituitary panel 02/01/17 Range/Units 07:11 Sodium 131 L (136-145) mEq/L Potassium 3.8 (3.5-5.1) mEq/L Chloride 105 (98-107) mEq/L Carbon Dioxide 17 L (23-29) mEq/L BUN 14 (6-20) mg/dL Creatinine 0.50 L (0.60-1.20) mg/dL Glucose 305 H (70-105) mg/dL Calcium 8.0 L (8.6-10.3) mg/dL Adrenal panel 02/01/17 Range/Units 07:11 Sodium 131 L (136-145) mEq/L Potassium 3.8 (3.5-5.1) mEq/L Chloride 105 (98-107) mEq/L Carbon Dioxide 17 L (23-29) mEq/L BUN 14 (6-20) mg/dL Creatinine 0.50 L (0.60-1.20) mg/dL Glucose 305 H (70-105) mg/dL Calcium 8.0 L (8.6-10.3) mg/dL - VTE Reasons for not Prescribing Prophylaxis: Treatment not Indicated - Low risk for VTE Documentation of Mechanical Device: Intermittent pneumatic compression device Consult Discharge Plan - Plan Referrals: Edita Kimbrough MD [Primary Care Provider] -
--- NOTE | 2017-02-01 15:41 | Internal Medicine Consult Note ---
<Po Choudhury - Last Filed: 02/01/17 15:38> Date of Encounter: 02/01/17 Time of Encounter: 15:38 - Assessment and Plan (1) Hyperglycemia Status: Acute Assessment and plan: Hyperglycemia due to poorly controlled diabetes mellitus type 2. Reports she has not been taking her insulin for approximately 14 months. Hospitalist team has been consulted for further management. -Start Basal insulin 21 units at bedtime -Continue MED SSIC q6hrs -Target BG <160 -Implement hypoglycemia protocol -Remain NPO; Advance diet to target diet as directed per surgery -Consult date night caregiver to assist with resource management, diet and diabetic self-care -Consult addiction social worker to assist with resources upon discharge Internal Medicine - CN: HPI - Data of Consult Patient: new to practice Consult date: 02/01/17 Requesting Physician: John Wong MD - Consult Narrative Reason for consult: DIABETES MANAGEMENT; HIGH hgb A1C History of present illness: Ms. Oquendo is a 36 year old female with PMH of diabetes. Patient recently underwent upper scope and repair of ventral hernia. Continues to have elevated blood glucose secondary to poorly controlled diabetes. She reports that she has had diabetes for last 4 years and prior inguinal A1c's are well controlled at around 6. However, approximately 14 months ago she had any child requires an excess amount of care due to illness and she is unable to obtain her insulin since, thus resulting in her current condition Past Med Surg Social Fam HX - Past Medical History Medical history: diabetes Psychiatric history: no psych history - Past Surgical History Surgical History: - Social History Smoking Status: Current every day smoker Packs per day: 1/ Smokeless Tobacco Status: No Alcohol use: none Drug use: none - Additional Family History Additional family history: Noncontributory Review of systems: REVIEW OF SYSTEMS GENERAL: Negative for any nausea, vomiting, fevers, chills, or weight loss. NEUROLOGIC: Negative for any blurry vision, blind spots, double vision, facial asymmetry, dysphagia, dysarthria, hemiparesis, hemisensory deficits, vertigo, ataxia. HEENT: Negative for any head trauma, neck trauma, neck stiffness, photophobia, phonophobia, sinusitis, rhinitis. CARDIAC: Negative for any chest pain, dyspnea on exertion, paroxysmal nocturnal dyspnea, peripheral edema. PULMONARY: Negative for any shortness of breath, wheezing, COPD, or TB exposure. GASTROINTESTINAL: Negative for any abdominal pain, nausea, vomiting, bright red blood per rectum, melena. GENITOURINARY: Negative for any dysuria, hematuria, incontinence. INTEGUMENTARY: Left upper quadrant and left lower quadrant laparoscopic incisions. Well approximated, no drainage or redness and tenderness RHEUMATOLOGIC: Negative for any joint pains, photosensitive rashes, history of vasculitis or kidney problems. HEMATOLOGIC: Negative for any abnormal bruising, frequent infections or bleeding Internal Medicine - CN: Meds Docusate [Colace] 100 mg PO BID #30 capsule 02/04/17 [Rx] Ibuprofen [Motrin] 800 mg PO Q8HR #42 tablet 02/04/17 [Rx] Insulin DETEMIR [Levemir] 30 unit SQ HS #1 unit 02/04/17 [Rx] OxyCODONE/APAP 10/325 [Percocet 10/325 MG] 1 each PO Q6HR PRN #28 tablet [Rx] 3 Allergy/AdvReac Type Severity Reaction Status Date / Time Penicillins Allergy Rash Verified 01/31/17 20:05 IVP Dye Allergy Rash Uncoded 01/31/17 20:05 Internal Medicine - CN: Exam - Constitutional Vitals: Temp Pulse Resp BP Pulse Ox 98.1 F 81 18 110/74 95 02/01/17 11:40 02/01/17 11:40 02/01/17 11:40 02/01/17 11:40 02/01/17 11:40 General appearance IM: Present: A&O X 0, no acute distress Exam: PHYSICAL EXAMINATION: GENERAL: The patient is a well-developed, well-nourished female who appears to be in pain s/p laparoscopic ventral hernia repair . She is alert and oriented x3. HEENT: Head is normocephalic and atraumatic. Extraocular muscles are intact. Pupils are equal, round, and reactive to light and accommodation. Nares appeared normal. Mouth is well hydrated and without lesions. Mucous membranes are moist. Posterior pharynx clear of any exudate or lesions. NECK: Supple. No carotid bruits. No lymphadenopathy or thyromegaly. LUNGS: Clear to auscultation. HEART: Regular rate and rhythm without murmur. ABDOMEN: Soft, but tender at Laparoscopic sites. She is non distended, and has hypoactive BS; is not passing gas at this time. No hepatosplenomegaly was noted. EXTREMITIES: Without any cyanosis, clubbing, rash, lesions or edema. NEUROLOGIC: Alert and oriented 3, PSYCHIATRIC: Normal affect, denies suicidal or homicidal ideations. SKIN: No ulceration or induration present. Internal Medicine - CN: Reslt - Labs CBC & Chem 7: 01/31/17 23:18 02/01/17 07:11 Labs: BMP 02/01/17 07:11 Sodium 131 L Potassium 3.8 Chloride 105 Carbon Dioxide 17 L BUN 14 Creatinine 0.50 L Glucose 305 H Calcium 8.0 L Consult Discharge Plan - Plan Additional Instructions: #1 may shower, no tub bath for 2 weeks #2 wash incisions with soap and water and pat dry daily #3 no lifting, pushing, pulling more than 15 pounds for the next 6 weeks #4 no driving until off narcotics for 24 hours and able to safely react in the car #5 may climb stairs Referrals: John Wong MD [Non-Partnered Physician] - (call office for appointment in 2 weeks) Edita Kimbrough MD [Primary Care Provider] - Prescriptions: OxyCODONE/APAP 10/325 [Percocet 10/325 MG] 1 each PO Q6HR PRN #28 tablet PRN Reason: Pain Ibuprofen [Motrin] 800 mg PO Q8HR #42 tablet Docusate [Colace] 100 mg PO BID #30 capsule Insulin DETEMIR [Levemir] 30 unit SQ HS #1 unit <CharlieleannaEmily Halina - Last Filed: 03/03/17 09:01> Date of Encounter: 03/03/17 Internal Medicine - CN: HPI - Data of Consult Requesting Physician: John Wong MD - Consult Narrative History of present illness: Ms. Oquendo is a 36 year old female Internal Medicine - CN: Exam - Constitutional Vitals: Temp Pulse Resp BP Pulse Ox 97.4 F L 83 18 121/82 96 02/04/17 11:24 02/04/17 11:24 02/04/17 11:24 02/04/17 11:24 02/04/17 11:24 Internal Medicine - CN: Reslt - Labs CBC & Chem 7: 02/04/17 04:34 02/04/17 04:34 - Attending Attestation I personally and independently interviewed and examined the patient with BUILDING EQUIPMENT OPERATOR, and I reviewed the patient's medical record with her. I am in agreement with the assessment and proposed treatment plan. I discussed my findings and recommendation with the patient and answer all questions. The patient's medical records were edited to accurately reflect this encounter.
[2017-02-01] MEDS: *HR* Heparin 5,000 UNIT/ML VIAL SQ SCH (18:22)
[2017-02-01] MEDS: Pantoprazole 40 MG VIAL IVP SCH (18:22)
[2017-02-01] MEDS ORDERED: Insulin DETEMIR 100 UNIT/ML X5UNITS SQ SCH (21:00)
[2017-02-02] MEDS: *HR* HYDROmorphone (PF) 1 MG/ML SYRINGE IVP PRN ×7 (02:09→21:06)
[2017-02-02] MEDS: *HR* Heparin 5,000 UNIT/ML VIAL SQ SCH ×2 (05:17→17:03)
[2017-02-02] MEDS: Pantoprazole 40 MG VIAL IVP SCH ×2 (05:18→17:03)
[2017-02-02] MEDS: 0.9 % Sodium Chloride 1,000 ML IVC SCH (05:24)
[2017-02-02] MEDS: Insulin LISPRO 300 UNITS/3 ML VIAL SQ SCH ×3 (05:56→17:10)
[2017-02-02 06:06] LABS: Basophils % 0.6 %; Eosinophils # 0.1 K/mcL (0.0-0.6); Eosinophils % 1.4 %; Hematocrit 42.8 % (35.3-44.9); Immature Granulocytes % 0.6 % (0-4); Lymphocytes # 1.3 K/mcL (0.6-4.6); Lymphocytes % 18.8 %; Mean Corpuscular HGB Conc 32.7 g/dL (31.6-35.5); Mean Corpuscular Hemoglobin 27.5 pg (28.0-33.3); Mean Corpuscular Volume 84.1 fL (83.0-100.0); Mean Platelet Volume 9.5 fL (9.4-12.4); Monocytes # 0.7 K/mcL (0.0-1.3); Monocytes % 9.3 %; Neutrophils # 4.9 K/mcL (1.6-8.9); Platelet Count 306 K/mcL (140-400); Red Blood Count 5.09 M/mcL (3.82-4.97); Red Cell Distribution Width 13.3 % (11.5-14.5); Segmented Neutrophils % 69.3 %
[2017-02-02 06:24] LABS: Alanine Aminotransferase 8 Units/L (7-52); Albumin 2.9 g/dL (3.5-5.7); Albumin/Globulin Ratio 1.3 (1.1-2.2); Alkaline Phosphatase 59 Units/L (34-104); Aspartate Amino Transferase 8 Units/L (13-39); BUN/Creatinine Ratio 24 (6-26); Bilirubin,Total 0.4 mg/dL (0.3-1.0); Blood Urea Nitrogen 10 mg/dL (6-20); Carbon Dioxide 19 mEq/L (23-29); Chloride 108 mEq/L (98-107); Globulin 2.3 g/dL (2.4-3.5); Glucose 172 mg/dL (70-105); Osmolality,Calculated 283 (280-300); Potassium 2.9 mEq/L (3.5-5.1); Sodium 135 mEq/L (136-145); Total Protein 5.2 g/dL (6.4-8.9); eGFR For African Americans > 60 (> 60); eGFR For Non-African Americans > 60 (> 60)
[2017-02-02] MEDS ORDERED: Potassium Chloride 40 MEQ, Lidocaine 1% 2 ML in D5% in Water 500 ML IVPB ONE ×2 (09:10→20:09)
[2017-02-02 09:54] LABS: Magnesium 1.6 mg/dL (1.6-2.6)
--- NOTE | 2017-02-02 13:25 | Internal Med Progress Note ---
Date of Encounter: 02/02/17 Time of Encounter: 11:00 - Assessment and plan (1) Diabetes mellitus Current Visit: Yes Status: Acute Assessment and plan: A1c is 11.8. The patient is uncontrolled. I will increase her Levemir to 25 units. She is better controlled on yesterday. She was started initially on 21 units of Levemir. She needs diabetes education. Qualifiers: Diabetes mellitus type: type 2 Diabetes mellitus complication status: without complication Diabetes mellitus intermediate insulin use: unspecified intermediate insulin use status Qualified Code(s): E11.9 - Type 2 diabetes mellitus without complications (2) Hypokalemia Current Visit: Yes Status: Acute Assessment and plan: We will give IV potassium. I will place him on IV potassium and her fluids. (3) Incarcerated hernia Current Visit: Yes Status: Acute Assessment and plan: Management per primary. (4) DVT prophylaxis Current Visit: Yes Status: Acute Assessment and plan: Heparin subcutaneous - Subjective Interval history: Patient is having abdominal pain. She has had no bowel movement. She is not sure if she passed gas. She is been afebrile. - Constitutional Vitals: Temp Pulse Resp BP Pulse Ox 98.6 F 70 16 125/81 97 02/02/17 10:59 02/02/17 10:59 02/02/17 10:59 02/02/17 10:59 02/02/17 10:59 General appearance: Present: A&O X 0, no acute distress Exam: GEN: NAD CVS: RRR. S1, S2, No m/r/g RESP: CTAB ABD: Obese lower abdomen tenderness. , ND, hypoactive bowel sounds EXT: No edema. 2+ DP. No rashes NEURO: Nonfocal Internal Medicine: Result - Labs CBC & Chem 7: 02/02/17 05:10 02/02/17 05:10 Labs: Short CBC 02/02/17 Range/Units 05:10 WBC 7.1 (4.3-11.1) K/mcL Hgb 14.0 D (11.5-15.4) g/dL Hct 42.8 (35.3-44.9) % Plt Count 306 (140-400) K/mcL Neutrophils # 4.9 (1.6-8.9) K/mcL BMP 02/02/17 05:10 Sodium 135 L Potassium 2.9 L Chloride 108 H Carbon Dioxide 19 L BUN 10 Creatinine 0.42 L Glucose 172 H Calcium 8.0 L Liver Function 02/02/17 Range/Units 05:10 Total Bilirubin 0.4 (0.3-1.0) mg/dL AST 8 L (13-39) Units/L ALT 8 (7-52) Units/L Alkaline Phosphatase 59 (34-104) Units/L Albumin 2.9 L (3.5-5.7) g/dL - VTE Reasons for not Prescribing Prophylaxis: Treatment not Indicated - Low risk for VTE Documentation of Mechanical Device: Intermittent pneumatic compression device Consult Discharge Plan - Plan Referrals: Edita Kimbrough MD [Primary Care Provider] -
[2017-02-02] MEDS: 0.9 % Sodium Chloride w KCl 20 MEQ/1,000 ML MLS IVC SCH (13:43)
[2017-02-02] MEDS: Insulin DETEMIR 100 UNIT/ML X5UNITS SQ SCH ×2 (13:44→21:46)
--- NOTE | 2017-02-02 15:01 | General Surgery Progress Note ---
<Renetta Darling - Last Filed: 02/02/17 15:38> Date of Encounter: 02/02/17 Time of Encounter: 08:40 - Assessment and Plan (1) Incarcerated ventral hernia Current Visit: Yes Status: Acute 36F POD #2 s/p laparoscopic incisional hernia repair 2/2 incarcerated hernia; bowel was involved, non-strangulated; no bowel resection required Plan: - continue dilaudid 1mg IVP Q3H PRN - add Flexeril 10mg PO TID for improved pain control - NPO except for ice chips and meds - await return of bowel function before advancing diet to sips of clear liquids - encouraged ambulation and incentive spirometry (2) Hyperglycemia Current Visit: Yes Status: Acute HgbA1c of 11.8% Improved since admission, serum glucose 172 this AM Plan: Continue ISS Follow glucose with accu-check's and AM labs Subjective Patient reports: no new complaints, still having pain (RUQ and LUQ, improved since yesterday), voiding w/o difficulty, flatus, no bowel movement Narrative: Patient seen and examined his morning at bedside. She denies chest pain, dyspnea , vomiting, bowel movements. She admits to some nausea with administration of IV pain meds. States she has ambulated to bathroom but required some assistance d/t pain. Objective Vital Signs - Last 8 Hours Temp Pulse Resp BP Pulse Ox 02/02/17 10:59 98.6 F 70 16 125/81 97 02/02/17 07:06 98.0 F 78 16 121/76 95 Intake and Output 02/01/17 02/02/17 02/02/17 23:59 07:59 15:59 Intake Total 1060 / 1060 1480 / 1480 0 / 0 Output Total 400 / 400 550 / 550 900 / 900 Balance 660 / 660 930 / 930 -900 / -900 Intake: IV Fluids 1000 / 1000 1000 / 1000 0.9 % Sodium Chloride 1,000 ML 1000 / 1000 1000 / 1000 @ 125 mls/hr IVC .Q8H [facility] Rx#: [id number] Oral 60 / 60 480 / 480 0 / 0 Output: Urine 400 / 400 550 / 550 900 / 900 Other: Meal NPO NPO Percent of Meal Consumed 0% 0% # Voids 1 Weight 110.767 kg Blood Glucose* 141 168 139 Patient Weight 02/02/17 23:59 Weight 110.767 kg - General physical appearance well developed, well nourished, no distress - Eyes normal ocular movement - Respiratory normal respiratory effort, clear to auscultation - Cardiovascular Cardiovascular exam: Present: RRR. Absent: murmurs - Abdomen Abdomen: Present: bowel sounds present, soft Abdominal Tenderness: diffusely Hernia: none - Incision Incision: Present: clean and dry, approximated - Neurologic CN 2-12 grossly intact - Psychiatric oriented to time, oriented to person, oriented to place - Labs 02/02/17 05:10 02/02/17 05:10 Diabetes panel 02/02/17 Range/Units 05:10 Sodium 135 L (136-145) mEq/L Potassium 2.9 L (3.5-5.1) mEq/L Chloride 108 H (98-107) mEq/L Carbon Dioxide 19 L (23-29) mEq/L BUN 10 (6-20) mg/dL Creatinine 0.42 L (0.60-1.20) mg/dL Glucose 172 H (70-105) mg/dL Calcium 8.0 L (8.6-10.3) mg/dL AST 8 L (13-39) Units/L ALT 8 (7-52) Units/L Alkaline Phosphatase 59 (34-104) Units/L Albumin 2.9 L (3.5-5.7) g/dL Calcium panel 02/02/17 Range/Units 05:10 Calcium 8.0 L (8.6-10.3) mg/dL Albumin 2.9 L (3.5-5.7) g/dL Pituitary panel 02/02/17 Range/Units 05:10 Sodium 135 L (136-145) mEq/L Potassium 2.9 L (3.5-5.1) mEq/L Chloride 108 H (98-107) mEq/L Carbon Dioxide 19 L (23-29) mEq/L BUN 10 (6-20) mg/dL Creatinine 0.42 L (0.60-1.20) mg/dL Glucose 172 H (70-105) mg/dL Calcium 8.0 L (8.6-10.3) mg/dL Adrenal panel 02/02/17 Range/Units 05:10 Sodium 135 L (136-145) mEq/L Potassium 2.9 L (3.5-5.1) mEq/L Chloride 108 H (98-107) mEq/L Carbon Dioxide 19 L (23-29) mEq/L BUN 10 (6-20) mg/dL Creatinine 0.42 L (0.60-1.20) mg/dL Glucose 172 H (70-105) mg/dL Calcium 8.0 L (8.6-10.3) mg/dL Total Bilirubin 0.4 (0.3-1.0) mg/dL AST 8 L (13-39) Units/L ALT 8 (7-52) Units/L Alkaline Phosphatase 59 (34-104) Units/L Albumin 2.9 L (3.5-5.7) g/dL - VTE Reasons for not Prescribing Prophylaxis: Treatment not Indicated - Low risk for VTE Documentation of Mechanical Device: Intermittent pneumatic compression device Consult Discharge Plan - Plan Referrals: Edita Kimbrough MD [Primary Care Provider] - <John Wong - Last Filed: 02/02/17 17:47> Date of Encounter: 02/02/17 - Assessment and Plan (1) Incarcerated ventral hernia Current Visit: Yes Status: Acute (2) Hyperglycemia Current Visit: Yes Status: Acute Objective Vital Signs - Last 8 Hours Temp Pulse Resp BP Pulse Ox 02/02/17 15:05 97.8 F 76 20 121/78 96 02/02/17 10:59 98.6 F 70 16 125/81 97 Intake and Output 02/01/17 02/02/17 02/02/17 23:59 07:59 15:59 Intake Total 1060 / 1060 1480 / 1480 0 / 0 Output Total 400 / 400 550 / 550 900 / 900 Balance 660 / 660 930 / 930 -900 / -900 Intake: IV Fluids 1000 / 1000 1000 / 1000 0.9 % Sodium Chloride 1,000 ML 1000 / 1000 1000 / 1000 @ 125 mls/hr IVC .Q8H [facility] Rx#: [id number] Oral 60 / 60 480 / 480 0 / 0 Output: Urine 400 / 400 550 / 550 900 / 900 Other: Meal NPO NPO Percent of Meal Consumed 0% 0% # Voids 1 Weight 110.767 kg Blood Glucose* 141 168 139 Patient Weight 02/02/17 23:59 Weight 110.767 kg - Labs 02/02/17 05:10 02/02/17 05:10 Diabetes panel 02/02/17 Range/Units 05:10 Sodium 135 L (136-145) mEq/L Potassium 2.9 L (3.5-5.1) mEq/L Chloride 108 H (98-107) mEq/L Carbon Dioxide 19 L (23-29) mEq/L BUN 10 (6-20) mg/dL Creatinine 0.42 L (0.60-1.20) mg/dL Glucose 172 H (70-105) mg/dL Calcium 8.0 L (8.6-10.3) mg/dL AST 8 L (13-39) Units/L ALT 8 (7-52) Units/L Alkaline Phosphatase 59 (34-104) Units/L Albumin 2.9 L (3.5-5.7) g/dL Calcium panel 02/02/17 Range/Units 05:10 Calcium 8.0 L (8.6-10.3) mg/dL Albumin 2.9 L (3.5-5.7) g/dL Pituitary panel 02/02/17 Range/Units 05:10 Sodium 135 L (136-145) mEq/L Potassium 2.9 L (3.5-5.1) mEq/L Chloride 108 H (98-107) mEq/L Carbon Dioxide 19 L (23-29) mEq/L BUN 10 (6-20) mg/dL Creatinine 0.42 L (0.60-1.20) mg/dL Glucose 172 H (70-105) mg/dL Calcium 8.0 L (8.6-10.3) mg/dL Adrenal panel 02/02/17 Range/Units 05:10 Sodium 135 L (136-145) mEq/L Potassium 2.9 L (3.5-5.1) mEq/L Chloride 108 H (98-107) mEq/L Carbon Dioxide 19 L (23-29) mEq/L BUN 10 (6-20) mg/dL Creatinine 0.42 L (0.60-1.20) mg/dL Glucose 172 H (70-105) mg/dL Calcium 8.0 L (8.6-10.3) mg/dL Total Bilirubin 0.4 (0.3-1.0) mg/dL AST 8 L (13-39) Units/L ALT 8 (7-52) Units/L Alkaline Phosphatase 59 (34-104) Units/L Albumin 2.9 L (3.5-5.7) g/dL - Attending Attestation I have personally seen and examined the patient. I have reviewed pertinent labs , imaging, progress notes, including this one. I agree with the above assessment and plan and wish to include the following... POD#2 s.p lap incisonal hernia repair; pain is better controlled; she is voiding on her own; with a little flatus; non peritoneal, incisons are c/d/i; will plan for flexeril, encouraged activity; will keep with ice chips until she has more bowel function or a bowel movement;
[2017-02-02 20:53] LABS: BUN/Creatinine Ratio 18 (6-26); Blood Urea Nitrogen 7 mg/dL (6-20); Calcium 8.1 mg/dL (8.6-10.3); Carbon Dioxide 21 mEq/L (23-29); Chloride 109 mEq/L (98-107); Glucose 133 mg/dL (70-105); Magnesium 1.6 mg/dL (1.6-2.6); Osmolality,Calculated 280 (280-300); Potassium 3.2 mEq/L (3.5-5.1); Sodium 135 mEq/L (136-145); eGFR For African Americans > 60 (> 60); eGFR For Non-African Americans > 60 (> 60)
[2017-02-03] MEDS: *HR* HYDROmorphone (PF) 1 MG/ML SYRINGE IVP PRN ×4 (00:48→11:37)
[2017-02-03] MEDS: Insulin LISPRO 300 UNITS/3 ML VIAL SQ SCH ×4 (00:53→18:20)
[2017-02-03] MEDS: 0.9 % Sodium Chloride w KCl 20 MEQ/1,000 ML MLS IVC SCH ×2 (02:02→18:18)
[2017-02-03 05:57] LABS: Basophils % 0.5 %; Eosinophils # 0.2 K/mcL (0.0-0.6); Eosinophils % 3.1 %; Hematocrit 43.3 % (35.3-44.9); Hemoglobin 14.1 g/dL (11.5-15.4); Immature Granulocytes % 0.3 % (0-4); Lymphocytes # 1.9 K/mcL (0.6-4.6); Lymphocytes % 32.3 %; Mean Corpuscular HGB Conc 32.6 g/dL (31.6-35.5); Mean Corpuscular Hemoglobin 27.4 pg (28.0-33.3); Mean Corpuscular Volume 84.1 fL (83.0-100.0); Mean Platelet Volume 9.6 fL (9.4-12.4); Monocytes # 0.5 K/mcL (0.0-1.3); Monocytes % 8.1 %; Neutrophils # 3.3 K/mcL (1.6-8.9); Platelet Count 313 K/mcL (140-400); Red Blood Count 5.15 M/mcL (3.82-4.97); Red Cell Distribution Width 13.3 % (11.5-14.5); Segmented Neutrophils % 55.7 %
[2017-02-03 06:06] LABS: BUN/Creatinine Ratio 18 (6-26); Blood Urea Nitrogen 8 mg/dL (6-20); Calcium 8.3 mg/dL (8.6-10.3); Carbon Dioxide 22 mEq/L (23-29); Chloride 105 mEq/L (98-107); Glucose 116 mg/dL (70-105); Osmolality,Calculated 279 (280-300); Sodium 135 mEq/L (136-145); eGFR For African Americans > 60 (> 60); eGFR For Non-African Americans > 60 (> 60)
[2017-02-03] MEDS: Pantoprazole 40 MG VIAL IVP SCH ×2 (06:38→18:19)
[2017-02-03] MEDS: *HR* Heparin 5,000 UNIT/ML VIAL SQ SCH ×2 (06:39→18:19)
[2017-02-03] MEDS ORDERED: Potassium Chloride 40 MEQ, Lidocaine 1% 2 ML in D5% in Water 500 ML IVPB ONE (08:35)
[2017-02-03] MEDS ORDERED: Potassium Chloride Elixir 20 MEQ/15 ML UDC PO ONE ×2 (08:36→17:16)
--- NOTE | 2017-02-03 10:30 | General Surgery Progress Note ---
<Renetta Darling - Last Filed: 02/03/17 16:25> Date of Encounter: 02/03/17 Time of Encounter: 09:00 - Assessment and Plan (1) Incarcerated ventral hernia Current Visit: Yes Status: Acute POD #3 s/p laparoscopic incisional hernia repair 2/2 incarcerated hernia; bowel was involved, non-strangulated; no bowel resection required Having flatus, still no bowel movement Appetite has returned, requesting food Plan: - IV pain meds stopped - PO pain control (PRN) with Tylenol or ibuprofen for mild pain; percocet 10/ 325mg 1 tab Q6H for breakthrough pain - sips of clears (non-carbonated, non-sweetened) maximum of 250mL Q8H - continue to encourage ambulation and incentive spirometry - awaiting full return of bowel function/bowel movement and tolerating PO before discharge (2) Hyperglycemia Current Visit: Yes Status: Acute HgbA1c of 11.8% Improved since admission Plan: Continue ISS Follow glucose with accu-check's and AM labs Subjective Patient reports: no new complaints, feels better, still having pain, pain is less, voiding w/o difficulty, flatus, no bowel movement Narrative: Seen and examined this morning at bedside, patient seated at edge of bed. States she feels ok today and has been ambulating more. Voiding without difficulty, flatus overnight, but denies bowel movement. Denies chest pain, dyspnea, fevers, chills, nausea, vomiting. Admits to abdominal pain, but notes it is less painful that yesterday. Patient's appetite has returned, requesting jello. Objective Vital Signs - Last 8 Hours Temp Pulse Resp BP Pulse Ox 02/03/17 06:40 98 F 73 16 134/78 98 02/03/17 03:48 97.9 F 67 15 128/85 96 Intake and Output 02/02/17 02/03/17 02/03/17 23:59 07:59 15:59 Intake Total 480 / 480 1240 / 1240 Output Total 850 / 850 0 / 0 Balance -370 / -370 1240 / 1240 Intake: IV Fluids 1000 / 1000 KCl 20 mEq in 0.9% Sodium 1000 / 1000 Chloride 20 meq In 1,000 ml @ 125 mls/hr IVC .Q8H [facility] Rx#: [id number] Oral 480 / 480 240 / 240 Output: Urine 850 / 850 0 / 0 Other: Meal NPO Percent of Meal Consumed 0% Weight 110.5 kg Blood Glucose* 126 117 Patient Weight 02/03/17 23:59 Weight 110.5 kg - General physical appearance well developed, well nourished, no distress - Eyes normal ocular movement - Respiratory normal respiratory effort, clear to auscultation - Cardiovascular Cardiovascular exam: Present: RRR. Absent: murmurs - Abdomen Abdomen: Present: bowel sounds present, soft Abdominal Tenderness: RUQ, diffusely - Incision Incision: Present: clean and dry, intact - Neurologic CN 2-12 grossly intact - Psychiatric oriented to time, oriented to person, oriented to place, speech is normal - Labs 02/03/17 05:07 02/03/17 05:07 Diabetes panel 02/02/17 02/03/17 Range/Units 20:30 05:07 Sodium 135 L 135 L (136-145) mEq/L Potassium 3.2 L 3.0 L (3.5-5.1) mEq/L Chloride 109 H 105 (98-107) mEq/L Carbon Dioxide 21 L 22 L (23-29) mEq/L BUN 7 8 (6-20) mg/dL Creatinine 0.38 L 0.45 L (0.60-1.20) mg/dL Glucose 133 H 116 H (70-105) mg/dL Calcium 8.1 L 8.3 L (8.6-10.3) mg/dL Calcium panel 02/02/17 02/03/17 Range/Units 20:30 05:07 Calcium 8.1 L 8.3 L (8.6-10.3) mg/dL Pituitary panel 02/02/17 02/03/17 Range/Units 20:30 05:07 Sodium 135 L 135 L (136-145) mEq/L Potassium 3.2 L 3.0 L (3.5-5.1) mEq/L Chloride 109 H 105 (98-107) mEq/L Carbon Dioxide 21 L 22 L (23-29) mEq/L BUN 7 8 (6-20) mg/dL Creatinine 0.38 L 0.45 L (0.60-1.20) mg/dL Glucose 133 H 116 H (70-105) mg/dL Calcium 8.1 L 8.3 L (8.6-10.3) mg/dL Adrenal panel 02/02/17 02/03/17 Range/Units 20:30 05:07 Sodium 135 L 135 L (136-145) mEq/L Potassium 3.2 L 3.0 L (3.5-5.1) mEq/L Chloride 109 H 105 (98-107) mEq/L Carbon Dioxide 21 L 22 L (23-29) mEq/L BUN 7 8 (6-20) mg/dL Creatinine 0.38 L 0.45 L (0.60-1.20) mg/dL Glucose 133 H 116 H (70-105) mg/dL Calcium 8.1 L 8.3 L (8.6-10.3) mg/dL - VTE Reasons for not Prescribing Prophylaxis: Treatment not Indicated - Low risk for VTE Documentation of Mechanical Device: Intermittent pneumatic compression device Consult Discharge Plan - Plan Referrals: Edita Kimbrough MD [Primary Care Provider] - <John Wong - Last Filed: 02/03/17 18:45> Date of Encounter: 02/03/17 - Assessment and Plan (1) Incarcerated ventral hernia Current Visit: Yes Status: Acute (2) Hyperglycemia Current Visit: Yes Status: Acute Objective Vital Signs - Last 8 Hours Temp Pulse Resp BP Pulse Ox 02/03/17 16:12 97.6 F 71 16 114/72 97 Intake and Output 02/03/17 02/03/17 02/03/17 07:59 15:59 23:59 Intake Total 1240 / 1240 2222 / 2222 0 / 0 Output Total 0 / 0 700 / 700 0 / 0 Balance 1240 / 1240 1522 / 1522 0 / 0 Intake: IV Fluids 1000 / 1000 1522 / 1522 KCl 20 mEq in 0.9% Sodium 1000 / 1000 1000 / 1000 Chloride 20 meq In 1,000 ml @ 125 mls/hr IVC .Q8H [facility] Rx#: [id number] Oral 240 / 240 700 / 700 0 / 0 Output: Urine 0 / 0 700 / 700 0 / 0 Other: Meal Lunch Weight 110.5 kg Blood Glucose* 117 102 154 Patient Weight 02/03/17 23:59 Weight 110.5 kg - Labs 02/03/17 05:07 02/03/17 05:07 Diabetes panel 02/02/17 02/03/17 Range/Units 20:30 05:07 Sodium 135 L 135 L (136-145) mEq/L Potassium 3.2 L 3.0 L (3.5-5.1) mEq/L Chloride 109 H 105 (98-107) mEq/L Carbon Dioxide 21 L 22 L (23-29) mEq/L BUN 7 8 (6-20) mg/dL Creatinine 0.38 L 0.45 L (0.60-1.20) mg/dL Glucose 133 H 116 H (70-105) mg/dL Calcium 8.1 L 8.3 L (8.6-10.3) mg/dL Calcium panel 02/02/17 02/03/17 Range/Units 20:30 05:07 Calcium 8.1 L 8.3 L (8.6-10.3) mg/dL Pituitary panel 02/02/17 02/03/17 Range/Units 20:30 05:07 Sodium 135 L 135 L (136-145) mEq/L Potassium 3.2 L 3.0 L (3.5-5.1) mEq/L Chloride 109 H 105 (98-107) mEq/L Carbon Dioxide 21 L 22 L (23-29) mEq/L BUN 7 8 (6-20) mg/dL Creatinine 0.38 L 0.45 L (0.60-1.20) mg/dL Glucose 133 H 116 H (70-105) mg/dL Calcium 8.1 L 8.3 L (8.6-10.3) mg/dL Adrenal panel 02/02/17 02/03/17 Range/Units 20:30 05:07 Sodium 135 L 135 L (136-145) mEq/L Potassium 3.2 L 3.0 L (3.5-5.1) mEq/L Chloride 109 H 105 (98-107) mEq/L Carbon Dioxide 21 L 22 L (23-29) mEq/L BUN 7 8 (6-20) mg/dL Creatinine 0.38 L 0.45 L (0.60-1.20) mg/dL Glucose 133 H 116 H (70-105) mg/dL Calcium 8.1 L 8.3 L (8.6-10.3) mg/dL - Attending Attestation Patient seen and examined. I have reviewed all notes, labs, and pertinent information. I agree with the above assessment and plan and wish to add the following; Improving, afebrile, pain controlled; non peritoneal; advance to [facility], soft diet for dinner with plans for d/c on 02/04
[2017-02-03] MEDS ORDERED: Ibuprofen 800 MG TABLET PO PRN (12:18)
--- NOTE | 2017-02-03 12:50 | Internal Med Progress Note ---
Date of Encounter: 02/03/17 Time of Encounter: 17:12 - Assessment and plan (1) Incarcerated ventral hernia Current Visit: Yes Status: Acute (2) Hyperglycemia Current Visit: Yes Status: Acute Assessment and plan: Currently in acceptable inpatient range. (3) Diabetes mellitus Current Visit: Yes Status: Acute Assessment and plan: A1c is 11.8. The patient is uncontrolled. Levemir 25 units HS. 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 Will supplement with PO elixer as well as she advances her diet anticipate less supplementation would be needed. - Subjective Interval history: No complaints, no acute events. Patient currently eating lunch with good appetite. Denies any episodes of palpations, diaphoresis or other hypoglycemic symptoms. - Constitutional Vitals: Temp Pulse Resp BP Pulse Ox 98 F 73 16 134/78 98 02/03/17 06:40 02/03/17 06:40 02/03/17 06:40 02/03/17 06:40 02/03/17 06:40 Exam: GEN: NAD CVS: RRR. S1, S2 RESP: CTAB ABD: Soft, +TTP lower quadrants, normal bowel sounds, non-distended EXT: No edema. 2+ DP. No rashes Internal Medicine: Result - Labs CBC & Chem 7: 02/03/17 05:07 02/03/17 05:07 Labs: Short CBC 02/03/17 Range/Units 05:07 WBC 5.9 (4.3-11.1) K/mcL Hgb 14.1 (11.5-15.4) g/dL Hct 43.3 (35.3-44.9) % Plt Count 313 (140-400) K/mcL Neutrophils # 3.3 (1.6-8.9) K/mcL BMP 02/02/17 02/03/17 20:30 05:07 Sodium 135 L 135 L Potassium 3.2 L 3.0 L Chloride 109 H 105 Carbon Dioxide 21 L 22 L BUN 7 8 Creatinine 0.38 L 0.45 L Glucose 133 H 116 H Calcium 8.1 L 8.3 L - VTE Reasons for not Prescribing Prophylaxis: Treatment not Indicated - Low risk for VTE Documentation of Mechanical Device: Intermittent pneumatic compression device Consult Discharge Plan - Plan Referrals: Edita Kimbrough MD [Primary Care Provider] -
[2017-02-03] MEDS: *HR* OxyCODONE/APAP 10/325 TABLET PO PRN ×2 (16:01→22:00)
[2017-02-03] MEDS: Acetaminophen 325 MG TABLET PO PRN (18:19)
[2017-02-03] MEDS: Insulin DETEMIR 100 UNIT/ML X5UNITS SQ SCH (22:02)
[2017-02-04] MEDS: Insulin LISPRO 300 UNITS/3 ML VIAL SQ SCH ×2 (00:38→05:55)
[2017-02-04] MEDS: 0.9 % Sodium Chloride w KCl 20 MEQ/1,000 ML MLS IVC SCH ×2 (02:49→10:59)
[2017-02-04 05:34] LABS: BUN/Creatinine Ratio 17 (6-26); Blood Urea Nitrogen 6 mg/dL (6-20); Calcium 8.1 mg/dL (8.6-10.3); Carbon Dioxide 23 mEq/L (23-29); Chloride 109 mEq/L (98-107); Glucose 158 mg/dL (70-105); Osmolality,Calculated 283 (280-300); Potassium 3.7 mEq/L (3.5-5.1); Sodium 136 mEq/L (136-145); eGFR For African Americans > 60 (> 60); eGFR For Non-African Americans > 60 (> 60)
[2017-02-04] MEDS: *HR* Heparin 5,000 UNIT/ML VIAL SQ SCH (05:46)
[2017-02-04] MEDS: Pantoprazole 40 MG VIAL IVP SCH (05:47)
[2017-02-04] MEDS: *HR* OxyCODONE/APAP 10/325 TABLET PO PRN ×2 (05:48→13:27)
[2017-02-04 07:10] LABS: Basophils % 0.4 %; Eosinophils # 0.2 K/mcL (0.0-0.6); Eosinophils % 3.9 %; Hematocrit 41.4 % (35.3-44.9); Hemoglobin 13.6 g/dL (11.5-15.4); Immature Granulocytes % 0.4 % (0-4); Lymphocytes # 1.7 K/mcL (0.6-4.6); Lymphocytes % 32.2 %; Mean Corpuscular HGB Conc 32.9 g/dL (31.6-35.5); Mean Corpuscular Hemoglobin 27.5 pg (28.0-33.3); Mean Corpuscular Volume 83.6 fL (83.0-100.0); Mean Platelet Volume 9.9 fL (9.4-12.4); Monocytes # 0.4 K/mcL (0.0-1.3); Monocytes % 7.1 %; Neutrophils # 2.9 K/mcL (1.6-8.9); Platelet Count 310 K/mcL (140-400); Red Blood Count 4.95 M/mcL (3.82-4.97); Red Cell Distribution Width 13.3 % (11.5-14.5)
[2017-02-04] MEDS: Acetaminophen 325 MG TABLET PO PRN (08:15)
--- NOTE | 2017-02-04 08:55 | General Surgery Progress Note ---
Date of Encounter: 02/04/17 Time of Encounter: 08:53 - Assessment and Plan (1) Incarcerated ventral hernia Current Visit: Yes Status: Acute (2) Hyperglycemia Current Visit: Yes Status: Acute Subjective Patient reports: no new complaints, still having pain (patient reports pain from gas build up in her colon), tolerating liquids well, voiding w/o difficulty , flatus, no bowel movement, afebrile Objective Vital Signs - Last 8 Hours Temp Pulse Resp BP Pulse Ox 02/04/17 03:30 97.8 F 73 15 128/85 95 Intake and Output 02/03/17 02/04/17 02/04/17 23:59 07:59 15:59 Intake Total 480 / 480 1415 / 1415 Output Total 0 / 0 Balance 480 / 480 1415 / 1415 Intake: IV Fluids 1415 / 1415 KCl 20 mEq in 0.9% Sodium 1415 / 1415 Chloride 20 meq In 1,000 ml @ 125 mls/hr IVC .Q8H [facility] Rx#: [id number] Oral 480 / 480 0 / 0 Output: Urine 0 / 0 Other: Meal Clears # Voids 1 2 Weight 111.2 kg Blood Glucose* 211 162 Patient Weight 02/04/17 23:59 Weight 111.2 kg - General physical appearance well developed, well nourished, moderate pain, obese - Eyes normal ocular movement - ENT normal mucosa, no hearing loss, no congestion - Respiratory normal expansion, normal respiratory effort, clear to percussion, clear to auscultation - Cardiovascular Cardiovascular exam: Present: RRR - Abdomen Abdomen: Present: bowel sounds present, soft, tender. Absent: distended, guarding, rebound, rigid - Incision Incision: Present: clean and dry, intact, approximated. Absent: draining, red, swollen, inflamed, erythema, purulent, indurated, serous, serosanguinous, open - Integumentary no rash, no growths, no abnormal pigmentation - Neurologic normal coordination, normal sensation - Psychiatric oriented to time, oriented to person, oriented to place, speech is normal, memory intact - Labs 02/04/17 04:34 02/04/17 04:34 Diabetes panel 02/04/17 Range/Units 04:34 Sodium 136 (136-145) mEq/L Potassium 3.7 (3.5-5.1) mEq/L Chloride 109 H (98-107) mEq/L Carbon Dioxide 23 (23-29) mEq/L BUN 6 (6-20) mg/dL Creatinine 0.36 L (0.60-1.20) mg/dL Glucose 158 H (70-105) mg/dL Calcium 8.1 L (8.6-10.3) mg/dL Calcium panel 02/04/17 Range/Units 04:34 Calcium 8.1 L (8.6-10.3) mg/dL Pituitary panel 02/04/17 Range/Units 04:34 Sodium 136 (136-145) mEq/L Potassium 3.7 (3.5-5.1) mEq/L Chloride 109 H (98-107) mEq/L Carbon Dioxide 23 (23-29) mEq/L BUN 6 (6-20) mg/dL Creatinine 0.36 L (0.60-1.20) mg/dL Glucose 158 H (70-105) mg/dL Calcium 8.1 L (8.6-10.3) mg/dL Adrenal panel 02/04/17 Range/Units 04:34 Sodium 136 (136-145) mEq/L Potassium 3.7 (3.5-5.1) mEq/L Chloride 109 H (98-107) mEq/L Carbon Dioxide 23 (23-29) mEq/L BUN 6 (6-20) mg/dL Creatinine 0.36 L (0.60-1.20) mg/dL Glucose 158 H (70-105) mg/dL Calcium 8.1 L (8.6-10.3) mg/dL - VTE Reasons for not Prescribing Prophylaxis: Treatment not Indicated - Low risk for VTE Documentation of Mechanical Device: Intermittent pneumatic compression device Consult Discharge Plan - Plan Referrals: Edita Kimbrough MD [Primary Care Provider] -
--- NOTE | 2017-02-04 09:06 | Discharge Summary ---
<Lukas Larios - Last Filed: 02/04/17 12:26> Date of Encounter: 02/04/17 Time of Encounter: 09:02 - Discharge Diagnosis (1) Incarcerated ventral hernia Priority: Primary Status: Acute (2) Hyperglycemia Priority: Secondary Status: Acute - Discharge Medications Prescriptions: OxyCODONE/APAP 10/325 [Percocet 10/325 MG] 1 each PO Q6HR PRN #28 tablet PRN Reason: Pain Ibuprofen [Motrin] 800 mg PO Q8HR #42 tablet Docusate [Colace] 100 mg PO BID #30 capsule Insulin DETEMIR [Levemir] 30 unit SQ HS #1 unit Home Medications: Docusate [Colace] 100 mg PO BID #30 capsule 02/04/17 [Rx] Ibuprofen [Motrin] 800 mg PO Q8HR #42 tablet 02/04/17 [Rx] Insulin DETEMIR [Levemir] 30 unit SQ HS #1 unit 02/04/17 [Rx] OxyCODONE/APAP 10/325 [Percocet 10/325 MG] 1 each PO Q6HR PRN #28 tablet [Rx] Allergies/Adverse Reactions: 3 Allergy/AdvReac Type Severity Reaction Status Date / Time Penicillins Allergy Rash Verified 01/31/17 20:05 IVP Dye Allergy Rash Uncoded 01/31/17 20:05 General Surgery Exam Initial Vital Signs Temp Pulse Resp BP Pulse Ox 97.6 F 101 20 148/109 99 01/31/17 20:05 01/31/17 20:05 01/31/17 20:05 01/31/17 20:05 01/31/17 20:05 - General physical appearance well developed, well nourished, no distress - Eyes normal ocular movement - ENT normal mucosa, no hearing loss, no congestion - Respiratory normal expansion, normal respiratory effort, clear to percussion, clear to auscultation - Cardiovascular Cardiovascular exam: Present: RRR, 15, 16 - Abdomen Abdomen general surgery: Present: bowel sounds present, soft, non tender - Incision Incision: Present: clean and dry, intact. Absent: draining, red, swollen, inflamed, erythema, purulent, indurated, serous, serosanguinous, open - Neurologic Present: CN 2-12 grossly intact, normal coordination, normal sensation - Psychiatric Psychiatric general surgery: Present: appropriate, oriented to person, oriented to place, oriented to time, speech is normal, memory intact Date of admission: 02/02/17 15:38 Primary care physician: Edita Kimbrough MD Discharging clinician: Lukas Larios Anticipated date of discharge: 02/04/17 - Patient Status Disposition: Home, Self-Care Condition: Fair Functional capacity at discharge: independent ambulation Overall status at discharge: patient is progressing back to baseline - Discharge Instructions Follow Up With: Edita Kimbrough MD [Primary Care Provider] - John Wong MD [Non-Partnered Physician] - (call office for appointment in 2 weeks) Additional Instructions: #1 may shower, no tub bath for 2 weeks #2 wash incisions with soap and water and pat dry daily #3 no lifting, pushing, pulling more than 15 pounds for the next 6 weeks #4 no driving until off narcotics for 24 hours and able to safely react in the car #5 may climb stairs - Diet and Activity Activity: increase activity as tolerated Diet: advance to your usual diet - Hospital Course Hospital course: Ms. Oquendo is a 36 year old female presented to the [facility] ED on 01/31/17 with a 3 day hx of vomiting, diarrhea, fever (102F) and abd epigastric pain found to have incarcerated ventral hernia and hyperglycemia. On CT abd: a midline lower abdominal ventral hernia containing small bowel w/ incarceration suspected. On 02/01/2017 laparscopic incisional hernia repair was performed by Dr. John Wong without complication. Patients diet was advanced to clear liquids on POD 2. On POD #3 patient was flatus, and had a return of appetite. Patient discharged on 02/04/2017 with Percocet 5/325 #28 for breakthrough pain, Ibuprofen 800 mg Q8hr #42, and docusate 100 mg BID to be taken with narcotics. Patient will have an outpatient surgery follow up appointment Esther Mejia NP. During hospitalization, patient A1C was 11.8. During hospitalization, patient was BG was controlled with SSI. Per hospitalist, Dr. Ballard, patient to be discharged with Levemir 30 mg HS. Patient instructed to go back on insulin and to have tight glucose control at home. Patient to have follow up with PCP for Diabetes management. Time spent discussing smoking cessation with patient: more than 10 minutes - Time Spent with Patient Total time spent providing and/or coordinating discharge services: Greater than 30 minutes Labs on day of discharge: Labs from last 24 hours 02/04/17 02/04/17 02/04/17 05:53 04:34 04:34 WBC 5.2 RBC 4.95 Hgb 13.6 Hct 41.4 MCV 83.6 MCH 27.5 L MCHC 32.9 RDW 13.3 Plt Count 310 MPV 9.9 Immature Gran % 0.4 Seg Neutrophils % 56.0 Lymphocytes % 32.2 Monocytes % 7.1 Eosinophils % 3.9 Basophils % 0.4 Neutrophils # 2.9 Lymphocytes # 1.7 Monocytes # 0.4 Eosinophils # 0.2 Basophils # 0.0 Sodium 136 Potassium 3.7 Chloride 109 H Carbon Dioxide 23 BUN 6 Creatinine 0.36 L Est GFR ( Amer) > 60 Est GFR (Non-Af Amer) > 60 BUN/Creatinine Ratio 17 Glucose 158 H POC Glucose 162 H Calculated Osmolality 283 Calcium 8.1 L 02/04/17 02/03/17 02/03/17 00:02 17:26 12:56 WBC RBC Hgb Hct MCV MCH MCHC RDW Plt Count MPV Immature Gran % Seg Neutrophils % Lymphocytes % Monocytes % Eosinophils % Basophils % Neutrophils # Lymphocytes # Monocytes # Eosinophils # Basophils # Sodium Potassium Chloride Carbon Dioxide BUN Creatinine Est GFR ( Amer) Est GFR (Non-Af Amer) BUN/Creatinine Ratio Glucose POC Glucose 211 H 154 H 102 H Calculated Osmolality Calcium <Aurea Morin L - Last Filed: 02/04/17 13:39> Date of Encounter: 02/04/17 - Discharge Diagnosis (1) Abdominal pain Priority: Secondary Status: Acute Qualifiers: Abdominal location: unspecified location Qualified Code(s): R10.9 - Unspecified abdominal pain (2) Diabetes mellitus Priority: Secondary Status: Acute Qualifiers: Diabetes mellitus type: type 2 Diabetes mellitus complication status: without complication Diabetes mellitus mcc insulin use: unspecified terminal system operator insulin use status Qualified Code(s): E11.9 - Type 2 diabetes mellitus without complications (3) Incarcerated ventral hernia Priority: Primary Status: Acute General Surgery Exam Initial Vital Signs Temp Pulse Resp BP Pulse Ox 97.6 F 101 20 148/109 99 01/31/17 20:05 01/31/17 20:05 01/31/17 20:05 01/31/17 20:05 01/31/17 20:05 - General physical appearance well developed, well nourished, no distress, moderate pain, obese - Eyes PERRL, normal ocular movement - ENT normal mucosa, normocephalic - Neck trachea midline - Respiratory normal expansion, clear to auscultation - Cardiovascular Cardiovascular exam: Present: RRR - Incision Incision: Present: clean and dry, intact - Integumentary Integumentary general surgery: Present: warm and dry - Neurologic Present: CN 2-12 grossly intact, normal sensation - Musculoskeletal Present: normal gait, normal posture - Psychiatric Psychiatric general surgery: Present: A&Ox3, speech is normal Date of admission: 02/02/17 15:38 Primary care physician: Edita Kimbrough MD - Patient Status Functional capacity at discharge: independent ambulation Overall status at discharge: patient is progressing back to baseline - Diet and Activity Activity: increase activity as tolerated Diet: diabetic diet - Hospital Course Hospital course: Ms. Oquendo is a 36 year old female - Time Spent with Patient Total time spent providing and/or coordinating discharge services: Labs on day of discharge: Labs from last 24 hours 02/04/17 02/04/17 02/04/17 05:53 04:34 04:34 WBC 5.2 RBC 4.95 Hgb 13.6 Hct 41.4 MCV 83.6 MCH 27.5 L MCHC 32.9 RDW 13.3 Plt Count 310 MPV 9.9 Immature Gran % 0.4 Seg Neutrophils % 56.0 Lymphocytes % 32.2 Monocytes % 7.1 Eosinophils % 3.9 Basophils % 0.4 Neutrophils # 2.9 Lymphocytes # 1.7 Monocytes # 0.4 Eosinophils # 0.2 Basophils # 0.0 Sodium 136 Potassium 3.7 Chloride 109 H Carbon Dioxide 23 BUN 6 Creatinine 0.36 L Est GFR ( Amer) > 60 Est GFR (Non-Af Amer) > 60 BUN/Creatinine Ratio 17 Glucose 158 H POC Glucose 162 H Calculated Osmolality 283 Calcium 8.1 L 02/04/17 02/03/17 02/03/17 00:02 17:26 12:56 WBC RBC Hgb Hct MCV MCH MCHC RDW Plt Count MPV Immature Gran % Seg Neutrophils % Lymphocytes % Monocytes % Eosinophils % Basophils % Neutrophils # Lymphocytes # Monocytes # Eosinophils # Basophils # Sodium Potassium Chloride Carbon Dioxide BUN Creatinine Est GFR ( Amer) Est GFR (Non-Af Amer) BUN/Creatinine Ratio Glucose POC Glucose 211 H 154 H 102 H Calculated Osmolality Calcium - Attending Attestation I examined this patient and my medical decision-making was reviewed with the Resident Physician. I agree with the documented findings, disposition and treatment plan as described except to the extent set forth below.
[2017-02-04 11:25] VITALS: BP 121/82
--- NOTE | 2017-02-04 14:49 | Internal Med Progress Note ---
Date of Encounter: 02/04/17 Time of Encounter: 10:30 - Assessment and plan (1) Incarcerated ventral hernia Status: Acute Assessment and plan: Acute incarcerated ventral hernia - status post laparoscopic incisional hernia repair postoperative day #3 Stable for discharge from general surgery standpoint Follow-up as outpatient (2) Diabetes mellitus Status: Acute Assessment and plan: Type 2 diabetes mellitus, insulin-dependent, hyperglycemia Patient has not been on any medication for several months Discharge home with Levemir 30 units at bedtime HbA1c - 11.8 Follow-up with PCP Qualifiers: Diabetes mellitus type: type 2 Diabetes mellitus complication status: without complication Diabetes mellitus long term acute care registered nurse insulin use: unspecified long term acute care registered nurse insulin use status Qualified Code(s): E11.9 - Type 2 diabetes mellitus without complications (3) DVT prophylaxis Status: Acute Assessment and plan: Patient has been on Heparin subcutaneous - Time Spent With Patient 25 - 35 minutes - Subjective Interval history: Examined this morning. Patient is awake alert. Not in any distress. Denies chest pain or shortness of breath. No fever. Hemodynamically stable. Tolerating oral diet well. Denies abdominal pain or vomiting. No other acute events or complaints. Patient admitted for incarcerated ventral hernia and hyperglycemia. Patient underwent laparoscopic incisional hernia repair successfully. Doing well postoperatively. Hospital service consulted for management of diabetes. Patient has not been on any medication for DM for several months. - Constitutional Vitals: Temp Pulse Resp BP Pulse Ox 97.4 F L 83 18 121/82 96 02/04/17 11:24 02/04/17 11:24 02/04/17 11:24 02/04/17 11:24 02/04/17 11:24 General appearance: Present: A&O X 0, cooperative, A&O X 3, pleasant, no acute distress, answers questions appropriately - Head Head exam: Present: atraumatic - Eye Eye exam: Present: EOMI - ENT ENT exam: Present: mucous membranes moist - Respiratory Respiratory exam: Present: CTAB. Absent: accessory muscle use, chest wall tenderness, rales, respiratory distress, rhonchi, wheezes, tachypnea - Cardiovascular Cardiovascular exam: Present: RRR, +S1, +S2 - GI/Abdominal GI/Abdominal exam: Present: soft, no peritoneal signs. Absent: distended, firm , guarding, tenderness - Extremities Exam Extremities exam: Present: radial pulses palpable and symmetrical. Absent: calf tenderness, cyanotic, pedal edema - Neurological Exam Neurological exam: Present: alert, oriented X3, no focal deficits. Absent: facial droop, speech deficit Internal Medicine: Result - Labs CBC & Chem 7: 02/04/17 04:34 02/04/17 04:34 Labs: Short CBC 02/04/17 Range/Units 04:34 WBC 5.2 (4.3-11.1) K/mcL Hgb 13.6 (11.5-15.4) g/dL Hct 41.4 (35.3-44.9) % Plt Count 310 (140-400) K/mcL Neutrophils # 2.9 (1.6-8.9) K/mcL BMP 02/04/17 04:34 Sodium 136 Potassium 3.7 Chloride 109 H Carbon Dioxide 23 BUN 6 Creatinine 0.36 L Glucose 158 H Calcium 8.1 L - VTE Reasons for not Prescribing Prophylaxis: Treatment not Indicated - Low risk for VTE Documentation of Mechanical Device: Intermittent pneumatic compression device Consult Discharge Plan - Plan Additional Instructions: #1 may shower, no tub bath for 2 weeks #2 wash incisions with soap and water and pat dry daily #3 no lifting, pushing, pulling more than 15 pounds for the next 6 weeks #4 no driving until off narcotics for 24 hours and able to safely react in the car #5 may climb stairs Referrals: John Wong MD [Non-Partnered Physician] - (call office for appointment in 2 weeks) Edita Kimbrough MD [Primary Care Provider] - Prescriptions: OxyCODONE/APAP 10/325 [Percocet 10/325 MG] 1 each PO Q6HR PRN #28 tablet PRN Reason: Pain Ibuprofen [Motrin] 800 mg PO Q8HR #42 tablet Docusate [Colace] 100 mg PO BID #30 capsule Insulin DETEMIR [Levemir] 30 unit SQ HS #1 unit
[2017-02-22] MEDS ORDERED: WATER IVPB ONE (20:09)
[2017-02-22] MEDS ORDERED: D5 IVPB ONE (20:09)
== END 2017-02-04 13:33 | disposition home or self-care (01) | DRG 227 ==
LOC: EMEROO 19:52 → 3ANU 19:52
PROVIDERS: ADMIT Surgery; ATTEND Surgery

== ENCOUNTER 2018-06-03 21:53 | Observation (INO) ==
--- NOTE | 2018-06-03 22:21 | Emergency Department Note ---
Disposition Clinical Impression: Abdominal pain Qualifiers: Abdominal location: lower abdomen, unspecified Qualified Code(s): R10.30 - Lower abdominal pain, unspecified Disposition: Admitted As Inpatient Condition: Good Abdominal Pain HPI - General Chief Complaint: ED Abdominal Pain Stated Complaint: Abd Pain/States Hernia is Back Time Seen by Provider: 06/03/18 22:19 Source: patient Nursing Notes Reviewed: Yes Vital Signs Reviewed: Yes - History of Present Illness HPI Narrative: 37-year-old female who presents the emergency department with complaints of abdominal pain. The patient has a known probable incisional hernia which has been giving her issues and she was actually scheduled to have surgery yesterday but had to leave as her child was sick. She states the pain is similar to previous episodes and not different in any way. She also notes nausea but denies any vomiting, chest pain, shortness of breath, diarrhea, dysuria, hematuria or back pain. She has had no fevers at home. She still passing gas and having normal bowel movements. Pain Scale: 8 - Related Data Home Medications Medication Instructions Recorded Confirmed Acetaminophen [Tylenol] 650 mg PO DAILY PRN 06/04/18 06/04/18 Allergies Allergy/AdvReac Type Severity Reaction Status Date / Time Iodinated Contrast- Oral and Allergy Hives Verified 06/04/18 10:05 IV Dye Penicillins Allergy "VOMITING/H Verified 06/04/18 10:05 ANNA MARIE" Review of Systems: ROS per history of present illness, all other systems reviewed and negative or normal. All systems ED: reviewed and negative except as stated. Review of Systems: As Per HPI Abdominal Pain PMH - Past Medical History Medical history: Reports: diabetes Female Surgical History: Reports: , herniorrhaphy, Tonsillectomy [employer]ODU[employer] DIVER history: Reports: spontaneous Psychiatric history: Reports: no psych history - Social History Smoking status: Current every day smoker Alcohol use: Reports: none Drug use: Reports: none Physical Exam General: Conversant. No apparent distress. Follow commands. Appears stated age. Neck: No JVD. Trachea midline. Neck supple. Eyes: PERRL. No scleral icterus. HENT: Normocephalic and atraumatic. Moist mucus membranes. Cardiovascular: Regular rate and rhythm. Normal S1 and S2. No murmurs appreciated. Normal capillary refill. Extremities well perfused with 2+ distal pulses bilaterally. No edema. Pulmonary: Normal and equal breath sounds bilaterally, anteriorly and posteriorly. No wheezes, rales, or rhonchi. Not in respiratory distress. Speaks in full sentences. Abdomen: Soft, nondistended. There is tenderness in the periumbilical and right lower quadrant. There is no guarding, rebound tenderness, rigidity. There are no appreciable masses. Neuro: Alert and oriented x3. No slurred speech. No focal deficits noted. Skin: No rashes noted on visualized skin. Musculoskeletal: No bony abnormalities visualized. Moves all extremities. Psych: Normal mood. Pleasant. Makes appropriate eye contact. - General Limitations: no limitations General appearance: alert, in no apparent distress Course - Consultations Consultation #1: Discussed case with Dr. Freitas, surgeon was to perform her surgery yesterday Explained that she does not have peritoneal signs and continues to have pain and nausea. He declines the need for repeat imaging or laboratory evaluation and accepts her to his service. Time: 22:39 Vital Signs Temperature 98.2 F 06/03/18 22:08 Pulse Rate 88 06/03/18 22:08 Respiratory Rate 16 06/03/18 22:08 Blood Pressure 140/89 06/03/18 22:08 O2 Sat by Pulse Oximetry 100 06/03/18 22:08 Temperature 98.2 F 06/04/18 00:36 Pulse Rate 73 06/04/18 00:36 Respiratory Rate 16 06/04/18 00:36 Blood Pressure 112/69 06/04/18 00:36 O2 Sat by Pulse Oximetry 96 06/04/18 00:36 Oxygen Delivery Oxygen Delivery Room Air Abdominal Pain - [facility] Narrative Medical decision making narrative: 37-year-old female who presents due to abdominal pain. The patient was actually scheduled for an incisional hernia repair yesterday with Dr. Freitas but had to leave to take care of her sick child. This pain is similar to her previous episodes and not different in any way. Her vital signs are stable and she has no peritoneal signs. The patient was given 1 L fluid bolus, Zofran and fentanyl for pain management. I discussed the case with Dr. Freitas who agrees with plan for admission to his surgical service. He declines the need for any repeat laboratory or imaging studies at this time. Patient agrees with and understands course of treatment plan including plan for admission. All questions answered. - Medical Records Medical records reviewed: Yes I reviewed the patient's medical records. - Lab Data Result diagrams: 06/04/18 08:21 06/04/18 08:21 Attestation Statement - Attestation Attestation: I have seen this patient with the resident physician, I have personally evaluated this patient. I had reviewed the chart and document dictation by the resident physician and aM in agreement with the information documented by the resident physician. Please see documentation by the resident physician for complete chart including past medical history, family medical history, review of systems, current history and physical and laboratory and imaging studies. I was present for all procedures, provided direct supervision for all procedures, was present for the entirety of all procedures and provided direct guidance during the procedures. Please see documentation by the resident physician for any procedures performed.
[2018-06-03] MEDS ORDERED: 0.9 % Sodium Chloride 1,000 ML IVC STA (22:29)
[2018-06-03] MEDS ORDERED: Ondansetron 4 MG/2 ML VIAL IVP STA (22:29)
[2018-06-03] MEDS ORDERED: *HR* FentaNYL (PF) 100 MCG/2 ML VIAL IVP ONE (22:30)
--- NOTE | 2018-06-03 22:55 | Emergency Department Note ---
Disposition Clinical Impression: Abdominal pain Disposition: Admitted As Inpatient General Adult HPI - General Chief complaint: ED Abdominal Pain Stated complaint: Abd Pain/States Hernia is Back Time Seen by Provider: 06/03/18 22:19 Source: patient Limitations: no limitations - History of Present Illness Pain Scale: 8 - Related Data Previous Rx's Medication Instructions Recorded Insulin DETEMIR [Levemir] 30 unit SQ HS #1 unit 02/04/17 Ondansetron ODT [Zofran ODT] 4 mg SL Q6HR 5 Days #20 tab.rapdis 06/02/18 Allergies Allergy/AdvReac Type Severity Reaction Status Date / Time Iodinated Contrast- Oral and Allergy Hives Verified 06/01/18 20:02 IV Dye Penicillins Allergy Rash Verified 04/30/18 21:51 Past Medical History - Past Medical History Medical history: Reports: diabetes Surgical history: Reports: Psychiatric history: Reports: no psych history 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 - Social History Smoking Status: Current every day smoker Smokeless Tobacco Status: No Alcohol use: Reports: none Drug use: Reports: none Physical Exam - General Limitations: no limitations General appearance: alert, in no apparent distress Course Vital Signs Temperature 98.2 F 06/03/18 22:08 Pulse Rate 88 06/03/18 22:08 Respiratory Rate 16 06/03/18 22:08 Blood Pressure 140/89 06/03/18 22:08 O2 Sat by Pulse Oximetry 100 06/03/18 22:08 Temperature 98.2 F 06/03/18 22:08 Pulse Rate 88 06/03/18 22:08 Respiratory Rate 16 06/03/18 22:08 Blood Pressure 140/89 06/03/18 22:08 O2 Sat by Pulse Oximetry 100 06/03/18 22:08 Oxygen Delivery Oxygen Delivery Room Air Attestation Statement - Attestation Attestation: I have seen this patient with the resident physician, I have personally evaluated this patient. I had reviewed the chart and document dictation by the resident physician and aM in agreement with the information documented by the resident physician. Please see documentation by the resident physician for complete chart including past medical history, family medical history, review of systems, current history and physical and laboratory and imaging studies. I was present for all procedures, provided direct supervision for all procedures, was present for the entirety of all procedures and provided direct guidance during the procedures. Please see documentation by the resident physician for any procedures performed. Patient presents emergency Department with abdominal pain associated with her hernia she was supposed to have surgery yesterday but her child had a significant emergency requiring admission to the hospital. She complains of the same pain in her right side that was evaluated yesterday and was supposed to be admitted for surgery She presents with increased pain and nausea without vomiting. She has no peritoneal sign, vital signs within acceptable limits. We spoke with her surgeon who would like the patient admitted to his service for pain control and surgical management tomorrow. She was admitted to the hospital for further evaluation and management. Surgery did not want any further workup in the emergency department.
[2018-06-03] MEDS ORDERED: 0.9 % Sodium Chloride 1,000 ML IVC SCH (23:00)
[2018-06-04] MEDS: MetroNIDAZOLE 500 MG/100 ML 500 MG/100 ML BAG IVPB SCH ×2 (01:30→07:59)
[2018-06-04] MEDS: OXYCODONE Oral CONC 10 MG/0.5 ML ORAL.SYG SL PRN ×3 (03:25→23:59)
[2018-06-04] MEDS ORDERED: *HR* Dextrose 50 % in Water (Syg) 50 ML SYRINGE IVP PRN ×3 (07:58→19:21)
[2018-06-04] MEDS ORDERED: D5% in Water 1,000 ML IVC PRN ×3 (07:58→19:21)
[2018-06-04] MEDS ORDERED: Dextrose Gel 15 GM/37.5 ML TUBE PO PRN ×5 (07:58→19:21)
--- NOTE | 2018-06-04 08:24 | AcuteCareSurgery Progress Note ---
Date of Encounter: 06/04/18 Objective Vital Signs - Last 8 Hours Temp Pulse Resp BP Pulse Ox 06/04/18 06:55 97.9 F 68 15 100/65 92 06/04/18 04:35 98.1 F 66 17 93/55 93 06/04/18 00:36 98.2 F 73 16 112/69 96 Intake and Output 06/03/18 06/04/18 06/04/18 23:59 07:59 15:59 Intake Total 300 / 300 Output Total 0 / 0 Balance 300 / 300 Intake: IV Fluids 300 / 300 Cipro Premix 400 MG/200 ML 400 200 / 200 mg In 200 ml @ 200 mls/hr IVPB Q12H [facility] Rx#:[id number] Flagyl Premix 500 MG/100 ML 500 100 / 100 mg In 100 ml @ 100 mls/hr IVPB Q8HR [facility] Rx#:[id number] Output: Urine 0 / 0 Other: # Voids 1 Weight 107.048 kg Blood Glucose* 281 - VTE Reasons for not Prescribing Prophylaxis: Treatment not Indicated - Low risk for VTE Consult Discharge Plan - Plan Referrals: NONE,PCP [Primary Care Provider] -
--- NOTE | 2018-06-04 08:30 | Acute Care Surgery H&P ---
Date of Encounter: 06/04/18 Time of Encounter: 07:00 Assessment and Plan (1) Recurrent ventral incisional hernia Current Visit: Yes Status: Acute Discussed with the patient her diagnosis of recurrent incisional ventral hernia. She is severely symptomatic from this condition. She doesn't exhibit signs of obstruction. She is in significant pain. Procedure risks and benefits of hernia repair are discussed with her. Possible complications include but, are not limited to bleeding, infection, bowel injury, DVT/PE, stroke, [place] or . She understands and wishes to proceed as advised amairani. Consent obtained and surgery scheduled. The assessment and plan as outlined above was discussed with the patient and/or family members who expressed understanding and agreement. All questions were answered. History of Present Illness Chief complaint: severe abdominal pain HPI: Ms. Oquendo is a 37 year old female who has had unrelenting abdominal pain due to a recurrent ventral hernia. She had been recently admitted with abdominal pain due to the same issue and had to be DC'd in order to attend to a emergency with her child. Now, she has returned c/o severe right sided abdominal pain and moore prapubic pain. She denies any nausea or vomiting. She denies changes in BM. She denies CP or SOB. She denies fever. Past Med Surg Social Fam HX - Past Medical History Medical history: diabetes Psychiatric history: no psych history - Past Surgical History Surgical History: - Social History Smoking Status: Current every day smoker Packs per day: 1 Smokeless Tobacco Status: No Alcohol use: none Drug use: none - Family History Father Living Status: Still Living Hx Family Cancer: Yes (lung and bone) Medications and Allergies Insulin DETEMIR [Levemir] 30 unit SQ HS #1 unit 02/04/17 [Rx] Ondansetron ODT [Zofran ODT] 4 mg SL Q6HR 5 Days #20 tab.rapdis 06/02/18 [Rx] Allergy/AdvReac Type Severity Reaction Status Date / Time Iodinated Contrast- Oral and Allergy Hives Verified 06/01/18 20:02 IV Dye Penicillins Allergy Rash Verified 04/30/18 21:51 Review of Systems All systems PM: The remainder of the systems were reviewed and are negative - Constitutional as per HPI, no anorexia, no chills, no fatigue, no fever(s), no night sweats, no weakness - EENT Nose, mouth and throat: no dizziness, no dry mouth, no dysphagia, no nasal congestion, no nasal discharge, no sinus pain, no sinus pressure, no sore throat - Cardiovascular no chest pain, no diaphoresis, no dyspnea, no edema - Respiratory no cough, no dyspnea, no wheezing - Gastrointestinal abdominal pain, bloating, no belching, no constipation, no diarrhea, no nausea, no vomiting - Genitourinary Genitourinary: no difficulty urinating, no dysuria, no urinary frequency - Musculoskeletal no back pain, no joint swelling, no limited range of motion, no neck pain - Integumentary no dry skin, no pruritus, no rash, no wounds, no jaundice - Neurological no dizziness, no focal weakness, no weakness - Psychiatric no anxiety, no depression - Hematologic/Lymphatic no easy bleeding, no easy bruising General Surgery Exam Initial Vital Signs Temp Pulse Resp BP Pulse Ox 98.2 F 88 16 140/89 100 06/03/18 22:08 06/03/18 22:08 06/03/18 22:08 06/03/18 22:08 06/03/18 22:08 - General physical appearance well nourished, no distress, moderate pain. negative: jaundice - Eyes PERRL, normal ocular movement. negative: icteric - ENT no congestion, dry mucosa. negative: nasal discharge - Neck no masses, no lymphadectomy, no venous distension - Respiratory normal respiratory effort, clear to auscultation - Cardiovascular Cardiovascular exam: Present: RRR. Absent: murmurs - Abdomen Abdomen general surgery: Present: bowel sounds present, soft, distended (+obese ), tender, guarding. Absent: rebound Abdominal Tenderness: Present: RUQ, RLQ, suprapubic - Incision Incision: Present: intact (well healed Pfannelsteil incision) - Genitourinary Present: normal external genitalia - Integumentary Integumentary general surgery: Present: warm and dry - Neurologic Present: CN 2-12 grossly intact - Musculoskeletal Present: normal posture - Psychiatric Psychiatric general surgery: Present: A&Ox3, appropriate Results - Labs All other labs normal. - Imaging CT scan - abdomen: image reviewed (+recurrent incisional ventral hernia) CT scan - pelvis: image reviewed - VTE Reasons for not Prescribing Prophylaxis: Treatment not Indicated - Low risk for VTE
[2018-06-04 08:33] LABS: Basophils % 0.3 %; Eosinophils # 0.1 K/mcL (0.0-0.6); Eosinophils % 1.1 %; Hemoglobin 13.6 g/dL (11.5-15.4); Immature Granulocytes % 0.2 % (0-4); Lymphocytes # 1.9 K/mcL (0.6-4.6); Lymphocytes % 28.2 %; Mean Corpuscular HGB Conc 32.4 g/dL (31.6-35.5); Mean Corpuscular Hemoglobin 28.3 pg (28.0-33.3); Mean Corpuscular Volume 87.5 fL (83.0-100.0); Mean Platelet Volume 9.6 fL (9.4-12.4); Monocytes # 0.5 K/mcL (0.0-1.3); Monocytes % 6.8 %; Neutrophils # 4.2 K/mcL (1.6-8.9); Platelet Count 238 K/mcL (140-400); Red Cell Distribution Width 12.8 % (11.5-14.5); Segmented Neutrophils % 63.4 %
[2018-06-04 08:40] LABS: Prothrombin Time 11.1 Seconds (9.4-12.1)
[2018-06-04 08:53] LABS: Alanine Aminotransferase 18 Units/L (7-52); Albumin 2.8 g/dL (3.5-5.7); Albumin/Globulin Ratio 1.2 (1.1-2.2); Alkaline Phosphatase 51 Units/L (34-104); Aspartate Amino Transferase 8 Units/L (13-39); BUN/Creatinine Ratio 24 (6-26); Bilirubin,Total 0.6 mg/dL (0.3-1.0); Blood Urea Nitrogen 9 mg/dL (6-20); Carbon Dioxide 26 mEq/L (23-29); Chloride 104 mEq/L (98-107); Globulin 2.3 g/dL (2.4-3.5); Glucose 294 mg/dL (70-105); Osmolality,Calculated 294 (280-300); Potassium 3.8 mEq/L (3.5-5.1); Sodium 137 mEq/L (136-145); Total Protein 5.1 g/dL (6.4-8.9); eGFR For Non-African Americans > 60 (> 60)
[2018-06-04 09:23] LABS: Estimated Average Glucose 318 mg/dl; Hemoglobin A1C 12.7 %
[2018-06-04] MEDS: Ondansetron 4 MG/2 ML VIAL IVP PRN ×2 (11:08→18:52)
[2018-06-04] MEDS ORDERED: Insulin LISPRO 300 UNITS/3 ML VIAL SQ SCH ×2 (12:00)
[2018-06-04] MEDS ORDERED: Albuterol 2.5 MG/3 ML NEBULIZER IH ONE ×2 (14:24→18:20)
[2018-06-04] MEDS ORDERED: Albuterol 2.5 MG/3 ML NEBULIZER ONE (14:27)
--- NOTE | 2018-06-04 14:35 | Anesthesia Evaluation PreOp ---
Date of Encounter: 06/04/18 Time of Encounter: 14:33 - Past History Planned Operation: Incisional hernia repair Pulmonary History: Smoker, Other (narcolepsy; underwent sleep study negative for KULWINDER) Other Medical History: Diabetes Type II (poorly controlled (A1c 12.7%); her son was sick and she has not been taking care of her diabetes), Other (BMI 41) Anesthesia History: No Prior Anesthetic Complications (nausea after her spinal for her C-S), Past Anesthesia (ventral hernia repair, c-s) Alcohol Use: none Drug use: none Medications and Allergies Acetaminophen [Tylenol] 650 mg PO DAILY PRN 06/04/18 [History] Allergy/AdvReac Type Severity Reaction Status Date / Time Iodinated Contrast- Oral and Allergy Hives Verified 06/04/18 10:05 IV Dye Penicillins Allergy "VOMITING/H Verified 06/04/18 10:05 ANNA MARIE" - Meds/Allergy Pre-op Review Medications Reviewed: Yes Allergies Reviewed: Yes Beta Blockers on Current Med List: No Anesthesia Results - Labs 06/04/18 08:21 06/04/18 08:21 - Imaging Additional studies: sleep study: IMPRESSION: 1. No primary sleep pathology identified. 2. Few respiratory events noted, no clinically significant. 3. Mild disrupted sleep structure. 4. Shorted sleep onset latency at 8 minutes and shortened REM latency as 45 minutes. CLINICAL CORRELATION: 1. This overnight polysomnography did not identify etiology for patient's complaint of excessive daytime sleepiness. 2. The study showed shortened sleep onset latency at 8 minutes which indicate presence of hypersomnolence. The presence of shortened REM latency is abnormal and suspicious for narcolepsy but this result does not meet the diagnostic criteria for narcolepsy. Repeat PSG followed by MSLT recommended. 3. Other possible cause may include depression, chronic pain, sleep restriction or idiopathic hypersomnolence. Clinical correlation advised. 4. If clinical suspicion for UARS is high, ENT evaluation can be beneficial. Anesthesia Exam Last Vital Signs Temp 98.3 F 06/04/18 14:00 Pulse 75 06/04/18 14:00 Resp 15 06/04/18 14:00 BP 101/66 06/04/18 14:00 Pulse Ox 95 06/04/18 14:00 Weight: 107 kg NPO (# of Hours): > 8 hrs - HEENT Pupil (Motor): Pupils equal, EOMI Mallampati: III Teeth: Missing, Poor dentition Oral Opening: Greater than 3 - FORMULA CLERK LOC: Oriented - Cardiac Rhythm: Regular Murmur: None - Pulmonary Breath Sounds: bilateral Clear Respiratory Effort: Symmetrical Anesthesia Assess/Plan ASA Score: 3 Level of consciousness: Cooperative Anesthetic Plan: General Monitoring Plan: Standard Monitors Recovery Plan: PACU
[2018-06-04] MEDS ORDERED: *HR* OxyCODONE Immed Rel 5 MG TABLET PO PRN (14:37)
[2018-06-04] MEDS ORDERED: *HR* Promethazine 25 MG/ML VIAL IVP PRN (14:37)
[2018-06-04] MEDS ORDERED: *HR* Midazolam HCl 2 MG/2 ML VIAL ONE (14:59)
[2018-06-04] MEDS ORDERED: Bupivacaine/EPI 1:200k 0.25%PF 10 ML VIAL INFILT ONE (14:59)
[2018-06-04] MEDS ORDERED: *HR* HYDROMORPHONE 2 MG/ML VIAL ONE (14:59)
[2018-06-04] MEDS ORDERED: *HR* Propofol 200 MG/20 ML VIAL IVP ONE (14:59)
[2018-06-04] MEDS ORDERED: *HR* FentaNYL (PF) 100 MCG/2 ML VIAL ONE (14:59)
[2018-06-04] MEDS ORDERED: Lidocaine -MPF 2% 2 ML VIAL ONE (15:07)
[2018-06-04] MEDS ORDERED: *HR* Rocuronium Bromide 50 MG/5 ML VIAL ONE ×2 (15:07→16:21)
[2018-06-04] MEDS ORDERED: Dexamethasone 4 MG/ML VIAL ONE (15:07)
[2018-06-04] MEDS ORDERED: *HR* Succinylcholine 200 MG/10 ML VIAL IVP ONE (15:07)
[2018-06-04] MEDS ORDERED: Ondansetron 4 MG/2 ML VIAL ONE (15:07)
[2018-06-04] MEDS ORDERED: Ketorolac 30 MG/ML VIAL ONE (16:31)
[2018-06-04] MEDS ORDERED: Acetaminophen IV 1,000 MG/100 ML INFUS..BTL ONE (16:33)
[2018-06-04] MEDS ORDERED: Neostigmine Methylsulfate 3 MG/3 ML SYRINGE ONE (17:02)
[2018-06-04] MEDS ORDERED: Bupivacaine/EPI 1:200k 0.5%PF 30 ML VIAL ONE (17:36)
[2018-06-04] MEDS: *HR* HYDROmorphone (PF) 1 MG/ML SYRINGE IVP PRN ×2 (18:30→18:45)
--- NOTE | 2018-06-04 18:49 | Anesthesia Evaluation Post Op ---
Date of Encounter: 06/04/18 Time of Encounter: 18:49 - Vital Signs Vital Signs: Vital Signs/O2 Sat, Most Current Temp Pulse Resp BP Pulse Ox 97.9 F 76 18 120/68 95 06/04/18 18:35 06/04/18 18:45 06/04/18 18:45 06/04/18 18:45 06/04/18 18:45 - Lungs Lungs: Clear Ascult./Percussion - Airway Airway: Non-obstructed - Cardiovascular Regular Rate - Mental Status Mental Status: Asleep with brisk response to light stimulation - Pain Pain Scale: 0 Pain Scale used: Numeric (1 - 10) - Nausea Vomiting Nausea Vomiting: Not Present - Hydration Hydration: Ice chips - Discharge PostOp Status: Transfer Patient to floor
[2018-06-04] MEDS ORDERED: Ondansetron 4 MG/2 ML VIAL IVP PRN (19:21)
--- NOTE | 2018-06-04 19:29 | Operative Note ---
Date of procedure: 06/04/18 Pre-op diagnosis: recurrent incisional ventral hernia Post-op diagnosis: same Procedure: Exploratory laparotomy with explantation of mesh and repair of recurrent incisional ventral hernia with mesh Anesthesia: DENISSE Surgeon: Bret Stiles Was there an licensed investment sales assistant present: No Estimated blood loss (cc): 50 Specimen: none Condition: stable Disposition: PACU Procedure in Detail: This 37-year-old female was taken to the operating room and placed in the supine position. Anterior abdominal wall was prepped and draped in the usual sterile fashion. A midline incision is made from the supraumbilical area down to the pubic symphysis. Subcutaneous tissue was carefully dissected down to anterior rectus fascia. Rectus fascia is divided sharply with great care taken to avoid injury to any underlying adherent small intestine or bowel. Upon entering the intra-abdominal cavity significant adhesiolysis of small intestine and previously placed mesh was carried out. The old mesh is then explanted. The previous hernia sac is excised. The space of Retzius is dissected. A 20 cm x 30 cm skirted mesh is placed in the intra-abdominal cavity and tacked into position above the pubic symphysis using a 0 Prolene suture. Next the pro- tacker was used to tack the mesh to the posterior aspect of the posterior rectus abdominis muscle at 1 cm intervals. Once the mesh was tacked into place the fascia is then closed using #1 looped PDS over the mesh. Copious irrigation is carried out in the subcutaneous space. The fascia was injected with 10 mL of 0.25% Marcaine with epi and 30 mL of 0.5% Marcaine with epi. The skin is closed with jeanna and a Jitendra incision vac dressing is placed. Patient tolerated procedure well was taken to the PACU in good condition.
[2018-06-04] MEDS: 0.9 % Sodium Chloride 1,000 ML IVC SCH (21:36)
[2018-06-05] MEDS: Insulin LISPRO 300 UNITS/3 ML VIAL SQ SCH ×4 (00:10→17:07)
[2018-06-05] MEDS: Acetaminophen IV 1,000 MG/100 ML INFUS..BTL IVPB SCH ×5 (00:51→23:02)
[2018-06-05] MEDS: MetroNIDAZOLE 500 MG/100 ML 500 MG/100 ML BAG IVPB SCH ×4 (00:51→23:07)
[2018-06-05] MEDS: OXYCODONE Oral CONC 10 MG/0.5 ML ORAL.SYG SL PRN ×5 (04:58→21:36)
[2018-06-05 07:55] LABS: Basophils % 0.1 %; Hematocrit 44.6 % (35.3-44.9); Hemoglobin 14.5 g/dL (11.5-15.4); Immature Granulocytes % 0.5 % (0-4); Lymphocytes % 9.3 %; Mean Corpuscular HGB Conc 32.5 g/dL (31.6-35.5); Mean Corpuscular Hemoglobin 28.6 pg (28.0-33.3); Mean Platelet Volume 9.5 fL (9.4-12.4); Monocytes # 0.7 K/mcL (0.0-1.3); Monocytes % 6.2 %; Platelet Count 289 K/mcL (140-400); Red Blood Count 5.07 M/mcL (3.82-4.97); Segmented Neutrophils % 83.9 %
[2018-06-05 07:56] LABS: Neutrophils # 8.8 K/mcL (1.6-8.9)
[2018-06-05 08:14] LABS: BUN/Creatinine Ratio 26 (6-26); Blood Urea Nitrogen 12 mg/dL (6-20); Calcium 8.6 mg/dL (8.6-10.3); Carbon Dioxide 26 mEq/L (23-29); Chloride 101 mEq/L (98-107); Glucose 246 mg/dL (70-105); Osmolality,Calculated 288 (280-300); Potassium 4.1 mEq/L (3.5-5.1); Sodium 135 mEq/L (136-145); eGFR For Non-African Americans > 60 (> 60)
--- NOTE | 2018-06-05 08:57 | AcuteCareSurgery Progress Note ---
<Esther Mejia - Last Filed: 06/05/18 08:55> Date of Encounter: 06/05/18 Time of Encounter: 07:30 - Assessment and Plan (1) Recurrent ventral incisional hernia Current Visit: Yes Status: Acute Date of procedure: 06/04/18 Pre-op diagnosis: recurrent incisional ventral hernia Post-op diagnosis: same Procedure: Exploratory laparotomy with explantation of mesh and repair of recurrent incisional ventral hernia with mesh Anesthesia: CANA Surgeon: Bret Stiles POD #1 as above. Given extensive nature of surgical intervention, continue clears today. We will need to closely monitor for postoperative infections given her uncontrolled diabetes Plan: Continue supportive care and discomfort management while awaiting full return of bowel function Continue G.I. and DVT prophylaxis Incentive spirometry 10 times every hour while awake Out of bed to chair TID, do not offer meal trays while in the bed Activity as tolerated Apply ice 20 minutes on 20 minutes off as needed BONNIE dressing remains intact and dry clear liquid diet for today, he advanced diet after assessment in the a.m. consult to hospitalist for type II diabetes management DC planning in the next 24 to 48 hours pending clinical course (2) T2DM (type 2 diabetes mellitus) Current Visit: Yes Status: Acute Consult hospitalist for inpatient management and outpatient recommendations Schedule follow-up in [facility] Consult to for financial assistance Check lactic acid hga1c 12.7 Qualifiers: Diabetes mellitus chcf insulin use: with chcf use Diabetes mellitus complication status: with unspecified complications Qualified Code(s): E11.8 - Type 2 diabetes mellitus with unspecified complications; Z79.4 - ocean transportation intermediary (current) use of insulin (3) Obesity, Class III, BMI 40-49.9 (morbid obesity) Current Visit: Yes Status: Acute consult to nutrition for diet education diabetes and weightloss (4) Nonadherence to medical treatment Current Visit: Yes Status: Acute Pt with longstanding history of not taking prescribed insulin or following diabetic diet recommendations Objective Vital Signs - Last 8 Hours Temp Pulse Resp BP Pulse Ox 06/05/18 07:13 98.2 F 68 14 119/79 90 06/05/18 03:48 98.1 F 79 14 110/70 95 Intake and Output 06/04/18 06/05/18 06/05/18 23:59 07:59 15:59 Intake Total 500 / 500 Output Total 50 / 50 525 / 525 Balance -50 / 250 -25 / -25 Intake: IV Fluids 500 / 500 Ofirmev 1,000 mg/100 ml 1,000 200 / 200 mg In 100 ml @ 400 mls/hr IVPB Q6HR YUNI Rx#:[id number] Cipro Premix 400 MG/200 ML 400 200 / 200 mg In 200 ml @ 200 mls/hr IVPB Q12H Y[facility]I Rx#:[id number] Flagyl Premix 500 MG/100 ML 500 100 / 100 mg In 100 ml @ 100 mls/hr IVPB Q8HR Y[facility]I Rx#:[id number] Output: Urine 525 / 525 Estimated Blood Loss 50 / 50 Other: # Voids 1 # Bowel Movements 0 Blood Glucose* 310 241 - Labs 06/05/18 07:37 06/05/18 07:37 Diabetes panel 06/04/18 06/05/18 Range/Units 08:21 07:37 Sodium 135 L (136-145) mEq/L Potassium 4.1 (3.5-5.1) mEq/L Chloride 101 (98-107) mEq/L Carbon Dioxide 26 (23-29) mEq/L BUN 12 (6-20) mg/dL Creatinine 0.46 L (0.60-1.20) mg/dL Glucose 246 H (70-105) mg/dL Hemoglobin A1c 12.7 H ( - 5.6) % Calcium 8.6 (8.6-10.3) mg/dL Calcium panel 06/05/18 Range/Units 07:37 Calcium 8.6 (8.6-10.3) mg/dL Pituitary panel 06/05/18 Range/Units 07:37 Sodium 135 L (136-145) mEq/L Potassium 4.1 (3.5-5.1) mEq/L Chloride 101 (98-107) mEq/L Carbon Dioxide 26 (23-29) mEq/L BUN 12 (6-20) mg/dL Creatinine 0.46 L (0.60-1.20) mg/dL Glucose 246 H (70-105) mg/dL Calcium 8.6 (8.6-10.3) mg/dL Adrenal panel 06/05/18 Range/Units 07:37 Sodium 135 L (136-145) mEq/L Potassium 4.1 (3.5-5.1) mEq/L Chloride 101 (98-107) mEq/L Carbon Dioxide 26 (23-29) mEq/L BUN 12 (6-20) mg/dL Creatinine 0.46 L (0.60-1.20) mg/dL Glucose 246 H (70-105) mg/dL Calcium 8.6 (8.6-10.3) mg/dL - VTE Reasons for not Prescribing Prophylaxis: Treatment not Indicated - Low risk for VTE Consult Discharge Plan - Plan Instructions: Diabetes Mellitus Type 2 in Adults (DC), Open Herniorrhaphy (DC), Meal Planning with Diabetes Exchanges (DC) Additional Instructions: General Surgical Discharge Instructions 1. No pushing, pulling, or lifting greater than 15 lbs for 6 weeks (depending upon procedure). 2. You may shower beginning today, but no tub baths, soaking, or swimming for 2 weeks. 3. You may resume driving when you are off narcotics and are safe to react in a car. 4. Take ibuprofen every 8 hours for discomfort. If this does not relieve discomfort, you may take the as needed Percocet. Take narcotics as directed. Do not take more narcotics then directed and do not share your narcotics with any other person. Do not drink alcohol while on narcotics. 5. Take stool softeners (Colace) or a water based laxative (Miralax) while taking narcotics. You may hold for loose stools. 6. Report any fevers greater than 100.5F, increase abdominal discomfort, drainage that looks like pus, increased redness or pain at the surgical site, or any vomiting. 7. Report any pain in the calves, shortness of breath, or rapid heartbeat. 8. Follow-up in the office as directed. 9. If you were prescribed antibiotics, do not stop them without talking to your provider. Referrals: Mlagorzata Souza CNP [Advanced Practice Nurse] - 06/19/18 11:00 am Esther Mejia CNP [Advanced Practice Nurse] - 06/18/18 1:30 pm <Mike Freitas - Last Filed: 06/05/18 12:15> Date of Encounter: 06/05/18 Objective Vital Signs - Last 8 Hours Temp Pulse Resp BP Pulse Ox 06/05/18 10:49 98.1 F 70 16 123/79 90 06/05/18 07:13 98.2 F 68 14 119/79 90 Intake and Output 06/04/18 06/05/18 06/05/18 23:59 07:59 15:59 Intake Total 500 / 1100 600 / 1100 Output Total 50 / 50 525 / 525 0 / 525 Balance -50 / 250 -25 / 575 600 / 575 Intake: IV Fluids 500 / 500 Ofirmev 1,000 mg/100 ml 1,000 200 / 200 mg In 100 ml @ 400 mls/hr IVPB Q6HR Y[facility] Rx#:[id number] Cipro Premix 400 MG/200 ML 400 200 / 200 mg In 200 ml @ 200 mls/hr IVPB Q12H Y[facility]I Rx#:[id number] Flagyl Premix 500 MG/100 ML 500 100 / 100 mg In 100 ml @ 100 mls/hr IVPB Q8HR Y[facility]I Rx#:[id number] Oral 600 / 600 Output: Urine 525 / 525 0 / 525 Estimated Blood Loss 50 / 50 Other: Meal Breakfast Clears # Voids 1 # Bowel Movements 0 0 Blood Glucose* 310 241 194 - Labs 06/05/18 07:37 06/05/18 07:37 Diabetes panel 06/05/18 Range/Units 07:37 Sodium 135 L (136-145) mEq/L Potassium 4.1 (3.5-5.1) mEq/L Chloride 101 (98-107) mEq/L Carbon Dioxide 26 (23-29) mEq/L BUN 12 (6-20) mg/dL Creatinine 0.46 L (0.60-1.20) mg/dL Glucose 246 H (70-105) mg/dL Calcium 8.6 (8.6-10.3) mg/dL Calcium panel 06/05/18 Range/Units 07:37 Calcium 8.6 (8.6-10.3) mg/dL Pituitary panel 06/05/18 Range/Units 07:37 Sodium 135 L (136-145) mEq/L Potassium 4.1 (3.5-5.1) mEq/L Chloride 101 (98-107) mEq/L Carbon Dioxide 26 (23-29) mEq/L BUN 12 (6-20) mg/dL Creatinine 0.46 L (0.60-1.20) mg/dL Glucose 246 H (70-105) mg/dL Calcium 8.6 (8.6-10.3) mg/dL Adrenal panel 06/05/18 Range/Units 07:37 Sodium 135 L (136-145) mEq/L Potassium 4.1 (3.5-5.1) mEq/L Chloride 101 (98-107) mEq/L Carbon Dioxide 26 (23-29) mEq/L BUN 12 (6-20) mg/dL Creatinine 0.46 L (0.60-1.20) mg/dL Glucose 246 H (70-105) mg/dL Calcium 8.6 (8.6-10.3) mg/dL - Attending Attestation I have personally performed a face to face evaluation on this patient. I have reviewed and agree with the care plan. History and Exam by me shows: The patient is seen and evaluated on morning rounds with the acute care surgery team. She is stable after repair of recurrent incisional hernia. Dr. Sonia Stiles was able to perform fascia closure over the top of mesh repair. Her main problem now is poorly treated diabetes. We greatly appreciate the assistance of our Hospitalist colleagues in managing her diabetes Mike Freitas MD FACS
[2018-06-05] MEDS ORDERED: Insulin DETEMIR 100 UNIT/ML X5UNITS SQ SCH (10:00)
[2018-06-05] MEDS: *HR* Heparin 5,000 UNIT/ML VIAL SQ SCH ×2 (11:50→17:07)
[2018-06-05] MEDS: Pantoprazole 40 MG VIAL IVP SCH (11:50)
--- NOTE | 2018-06-05 12:09 | Internal Medicine Consult Note ---
Date of Encounter: 06/05/18 Time of Encounter: 10:00 - Assessment and Plan (1) Recurrent ventral incisional hernia Current Visit: Yes Status: Acute Assessment and plan: Status post mesh plasty yesterday. Tolerating the procedure very well. Continue postoperative care as per the primary team including pain control and DVT prophylaxis. She currently is on clear liquids diet and they plan on advancing slowly. (2) Diabetes mellitus Current Visit: No Status: Acute Assessment and plan: History of poorly controlled diabetes mellitus due to social causes. Treat this patient like a new start of insulin We will start her on a long-acting insulin in the form of detemir 20 units now. I will also decrease her insulin sliding scale from aggressive to medium dose given that now we will be adding long acting insulin. Follow her blood sugars very closely and modify regimen until a new plan is established. I will already contacted social work and discussed with the patient's nurse for setting up outpatient access and diabetes education Once we have a regimen of treatment established, patient will need new prescriptions of her drugs and supplies at the time of discharge Qualifiers: Diabetes mellitus type: type 2 Diabetes mellitus senior living insulin use: with senior living use Diabetes mellitus complication status: without complication Qualified Code(s): E11.9 - Type 2 diabetes mellitus without complications; Z79.4 - senior living (current) use of insulin - Time Spent With Patient Total time spent is greater than 50% in coordination of care (as documented) at patient's floor/unit and/or counseling patient: Internal Medicine - CN: HPI - Data of Consult Requesting Physician: Mike Freitas MD - Consult Narrative Reason for consult: Hyperglycemia and poor diabetes control History of present illness: Ms. Oquendo is a 37 year old female who is currently on surgical service in the hospital after undergoing a ventral hernia repair with mesh plasty. This patient does have a history of diabetes that she tells me and used to be on Lantus and NovoLog regimen at home-she does not really remember the dosing of that regimen. The patient also tells me that she had been not consistently parker ing her insulins for the last year and a half because her child was in the NICU on a prolonged period of time. She underwent surgery yesterday and her postoperative course has pretty much been uncomplicated except for high blood sugars in the range of 280 to 320s. She denies any significant symptoms of nausea or vomiting at this time. Denies any fevers or chills does complain of vague pain postoperatively which is being handled very well Past Med Surg Social Fam HX - Past Medical History Medical history: diabetes Psychiatric history: no psych history - Past Surgical History Surgical History: - Social History Smoking Status: Current every day smoker Packs per day: 1 Smokeless Tobacco Status: No Alcohol use: none Drug use: none - Family History Father Living Status: Still Living Hx Family Cancer: Yes (lung and bone) All systems: reviewed and no additional remarkable complaints except as stated Internal Medicine - CN: Meds Acetaminophen [Tylenol] 650 mg PO DAILY PRN 06/04/18 [History] Allergy/AdvReac Type Severity Reaction Status Date / Time Iodinated Contrast- Oral and Allergy Hives Verified 06/04/18 10:05 IV Dye Penicillins Allergy "VOMITING/H Verified 06/04/18 10:05 ANNA MARIE" Hospitalist - CN: Exam - Constitutional Vitals: Temp Pulse Resp BP Pulse Ox 98.1 F 70 16 123/79 90 06/05/18 10:49 06/05/18 10:49 06/05/18 10:49 06/05/18 10:49 06/05/18 10:49 Exam: GENERAL: Alert, moderate distress, cooperative EYES: PERRLA, EOMI EARS: External ears normal, canals clear OROPHARYNX: Lips, mucosa, and tongue normal. Teeth and gums normal. Oropharynx normal. NECK: No jugulovenous distention, No carotid bruits, Carotid pulse normal contour, Supple LUNGS: Lungs clear to auscultation, Good diaphragmatic excursion CARDIAC: Normal S1 and S2; no rubs, murmurs, or gallops ABDOMEN: Abdominal binder in place, not taken off due to postoperative orders. Limited exam of the abdomen performed EXTREMITIES: Extremities normal, no deformities, edema, clubbing or skin discoloration. Good capillary refill., No ulcers NEURO: Gait unable to be tested. Reflexes normal and symmetric. Sensation gross ly intact, Cranial nerves II-XII intact PULSES: 2+ radial, 2+ carotid Rest of the exam is non contributory Internal Medicine - CN: Reslt - Labs CBC & Chem 7: 06/05/18 07:37 06/05/18 07:37 Labs: Short CBC 06/05/18 Range/Units 07:37 WBC 10.5 D (4.3-11.1) K/mcL Hgb 14.5 (11.5-15.4) g/dL Hct 44.6 (35.3-44.9) % Plt Count 289 (140-400) K/mcL Neutrophils # 8.8 (1.6-8.9) K/mcL BMP 06/05/18 07:37 Sodium 135 L Potassium 4.1 Chloride 101 Carbon Dioxide 26 BUN 12 Creatinine 0.46 L Glucose 246 H Calcium 8.6 - ABG Interpretation ABG results: PT/INR, D-dimer PT 11.1 Seconds (9.4-12.1) 06/04/18 08:21 Consult Discharge Plan - Plan Instructions: Diabetes Mellitus Type 2 in Adults (DC), Open Herniorrhaphy (DC), Meal Planning with Diabetes Exchanges (DC) Additional Instructions: General Surgical Discharge Instructions 1. No pushing, pulling, or lifting greater than 15 lbs for 6 weeks (depending upon procedure). 2. You may shower beginning today, but no tub baths, soaking, or swimming for 2 weeks. 3. You may resume driving when you are off narcotics and are safe to react in a car. 4. Take ibuprofen every 8 hours for discomfort. If this does not relieve discomfort, you may take the as needed Percocet. Take narcotics as directed. Do not take more narcotics then directed and do not share your narcotics with any other person. Do not drink alcohol while on narcotics. 5. Take stool softeners (Colace) or a water based laxative (Miralax) while taking narcotics. You may hold for loose stools. 6. Report any fevers greater than 100.5F, increase abdominal discomfort, drainage that looks like pus, increased redness or pain at the surgical site, or any vomiting. 7. Report any pain in the calves, shortness of breath, or rapid heartbeat. 8. Follow-up in the office as directed. 9. If you were prescribed antibiotics, do not stop them without talking to your provider. Referrals: Esther Mejia CNP [Advanced Practice Nurse] - 06/18/18 1:30 pm NONE,PCP [Primary Care Provider] -
[2018-06-05] MEDS: Nicotine 14 MG PATCH.TD24 TD SCH (15:34)
[2018-06-05] MEDS: 0.9 % Sodium Chloride 1,000 ML IVC SCH (20:11)
[2018-06-05] MEDS ORDERED: Insulin LISPRO 300 UNITS/3 ML VIAL SQ SCH (21:00)
[2018-06-06] MEDS: Benzonatate 100 MG CAPSULE PO PRN ×2 (00:14→09:40)
[2018-06-06] MEDS: OXYCODONE Oral CONC 10 MG/0.5 ML ORAL.SYG SL PRN ×4 (01:49→19:35)
[2018-06-06 04:18] LABS: BUN/Creatinine Ratio 24 (6-26); Blood Urea Nitrogen 8 mg/dL (6-20); Calcium 8.1 mg/dL (8.6-10.3); Carbon Dioxide 25 mEq/L (23-29); Chloride 103 mEq/L (98-107); Glucose 252 mg/dL (70-105); Osmolality,Calculated 287 (280-300); Potassium 3.2 mEq/L (3.5-5.1); Sodium 135 mEq/L (136-145); eGFR For Non-African Americans > 60 (> 60)
[2018-06-06 04:48] LABS: Basophils % 0.1 %; Eosinophils % 0.4 %; Hematocrit 40.5 % (35.3-44.9); Hemoglobin 13.3 g/dL (11.5-15.4); Immature Granulocytes % 0.3 % (0-4); Immature Platelets 2.6 % (1.1-6.1); Lymphocytes # 1.8 K/mcL (0.6-4.6); Lymphocytes % 23.4 %; Mean Corpuscular HGB Conc 32.8 g/dL (31.6-35.5); Mean Corpuscular Volume 88.4 fL (83.0-100.0); Mean Platelet Volume 9.8 fL (9.4-12.4); Monocytes % 7.3 %; Neutrophils # 5.2 K/mcL (1.6-8.9); Platelet Count 263 K/mcL (140-400); Red Blood Count 4.58 M/mcL (3.82-4.97); Red Cell Distribution Width 12.8 % (11.5-14.5); Segmented Neutrophils % 68.5 %
[2018-06-06 04:49] LABS: Monocytes # 0.6 K/mcL (0.0-1.3)
[2018-06-06] MEDS: Acetaminophen IV 1,000 MG/100 ML INFUS..BTL IVPB SCH ×4 (05:30→23:10)
[2018-06-06] MEDS: *HR* Heparin 5,000 UNIT/ML VIAL SQ SCH ×2 (05:31→17:46)
[2018-06-06] MEDS: MetroNIDAZOLE 500 MG/100 ML 500 MG/100 ML BAG IVPB SCH ×3 (09:20→23:32)
[2018-06-06] MEDS: 0.9 % Sodium Chloride 1,000 ML IVC SCH (09:20)
[2018-06-06] MEDS: Nicotine 14 MG PATCH.TD24 TD SCH (09:20)
[2018-06-06] MEDS: Insulin LISPRO 300 UNITS/3 ML VIAL SQ SCH ×5 (09:21→17:47)
--- NOTE | 2018-06-06 09:23 | Internal Med Progress Note ---
Hospitalist Progress Note - Encounter Date of Encounter: 06/06/18 Time of Encounter: 09:21 - Subjective Interval History: I have seen and evaluated the patient a bedside. Patient reports feeling uncomfortable due to her position in the bed. Denies abdominal pain, nausea, or vomiting. Denies chest pain or shortness of breath. Patient is status post Ex ploratory laparotomy with explantation of mesh and repair of recurrent incisional ventral hernia with mesh. - Exam Vitals: Temp Pulse Resp BP Pulse Ox 98.2 F 67 16 117/74 96 06/06/18 07:23 06/06/18 07:23 06/06/18 07:23 06/06/18 07:23 06/06/18 07:23 Exam: Vitals: Reviewed. General: Alert and oriented 4. In mild distress due to positioning and back pain. HEENT: EOM, pupils equal, round and reactive. Cardiovascular: RRR, normal S1 & S2, no rubs, murmurs or gallops. Lungs:CTA b/l, no wheezes or crackles. Abdomen: Obese, Soft, non-tender, no rigidity. Hypoactive bowel sounds in all 4 quadrants. Extremities: No deformity, no edema or tenderness, no joint swelling or clubbing. Neurological: Normal cognition and motor skills. Rest of the physical exam is non contributory - Assessment and Plan (1) Diabetes mellitus Current Visit: No Status: Acute Assessment and Plan: Patient with uncontrolled diabetes, reports no being compliant/taking any medication for many years due to social issues. Levemir changed to 15 units twice a day, lispro 4 units before meals, plus medium dose lispro sliding scale before meals. (2) Recurrent ventral incisional hernia Current Visit: Yes Status: Acute Assessment and Plan: s/p Exploratory laparotomy with explantation of mesh and repair of recurrent incisional ventral hernia with mesh POD # 3 Plan of care per surgical team. patient on metronidazole 500mg/IV Q8HRs continue PPI and anti-emetics diet to be advanced per surgery recommendations. (3) Hypokalemia Current Visit: No Status: Acute Assessment and Plan: electrolyte replaced DVT Prophylaxis: On heparin subQ. - Summary of Assessment and Plan Summary of Assessment and Plan: patient s/p Exploratory laparotomy with explantation of mesh and repair of recurrent incisional ventral hernia with mesh POD #3. Discharge planning per [facility] team. - Time Spent with Patient Total time spent is greater than 50% in coordination of care (as documented) at patient's floor/unit and/or counseling patient: Greater than 35 minutes (45) Plan of Care Discussed with: patient (and the nurse.) Internal Medicine: Result - Labs CBC & Chem 7: 06/06/18 03:36 06/06/18 03:36 Labs: Short CBC 06/06/18 Range/Units 03:36 WBC 7.5 (4.3-11.1) K/mcL Hgb 13.3 (11.5-15.4) g/dL Hct 40.5 (35.3-44.9) % Plt Count 263 (140-400) K/mcL Neutrophils # 5.2 (1.6-8.9) K/mcL BMP 06/06/18 03:36 Sodium 135 L Potassium 3.2 L Chloride 103 Carbon Dioxide 25 BUN 8 Creatinine 0.33 L Glucose 252 H Calcium 8.1 L - ABG Interpretation ABG results: PT/INR, D-dimer PT 11.1 Seconds (9.4-12.1) 06/04/18 08:21 - VTE Reasons for not Prescribing Prophylaxis: Treatment not Indicated - Low risk for VTE Consult Discharge Plan - Plan Instructions: Diabetes Mellitus Type 2 in Adults (DC), Open Herniorrhaphy (DC), Meal Planning with Diabetes Exchanges (DC) Additional Instructions: General Surgical Discharge Instructions 1. No pushing, pulling, or lifting greater than 15 lbs for 6 weeks (depending upon procedure). 2. You may shower beginning today, but no tub baths, soaking, or swimming for 2 weeks. 3. You may resume driving when you are off narcotics and are safe to react in a car. 4. Take ibuprofen every 8 hours for discomfort. If this does not relieve discomfort, you may take the as needed Percocet. Take narcotics as directed. Do not take more narcotics then directed and do not share your narcotics with any other person. Do not drink alcohol while on narcotics. 5. Take stool softeners (Colace) or a water based laxative (Miralax) while taking narcotics. You may hold for loose stools. 6. Report any fevers greater than 100.5F, increase abdominal discomfort, drainage that looks like pus, increased redness or pain at the surgical site, or any vomiting. 7. Report any pain in the calves, shortness of breath, or rapid heartbeat. 8. Follow-up in the office as directed. 9. If you were prescribed antibiotics, do not stop them without talking to your provider. Referrals: Malgorzata Souza CNP [Advanced Practice Nurse] - 06/19/18 11:00 am Esther Mejia CNP [Advanced Practice Nurse] - 06/18/18 1:30 pm (1) Diabetes mellitus Qualifiers: Diabetes mellitus type: type 2 Diabetes mellitus terminal worker insulin use: with terminal worker use Diabetes mellitus complication status: without complication Qualified Code(s): E11.9 - Type 2 diabetes mellitus without complications; Z79.4 - terminal worker (current) use of insulin
[2018-06-06] MEDS: Insulin DETEMIR 100 UNIT/ML X5UNITS SQ SCH ×2 (09:40→20:19)
[2018-06-06] MEDS: Pantoprazole 40 MG VIAL IVP SCH (09:40)
--- NOTE | 2018-06-06 09:42 | AcuteCareSurgery Progress Note ---
Date of Encounter: 06/06/18 Time of Encounter: 09:40 - Assessment and Plan (1) Recurrent ventral incisional hernia Current Visit: Yes Status: Acute 37F h/o poorly controlled diabetes s/p repair of strangulated incisional hernia after C section in 01/2017 now POD #2 s/p repair of recurrent ventral/incisional hernia; pain is improved, tolerating liquids okay to advance to FLD; if tolerates, then advance as tolerated to regular diet cont with current pain regimen OOBTC ambulate TID today SQH Subjective Patient reports: no new complaints, feels better, still having pain, pain is less, tolerating liquids well, afebrile Objective Vital Signs - Last 8 Hours Temp Pulse Resp BP Pulse Ox 06/06/18 07:23 98.2 F 67 16 117/74 96 06/06/18 03:51 97.9 F 76 15 110/69 96 Intake and Output 06/05/18 06/06/18 06/06/18 23:59 07:59 15:59 Intake Total 1500 / 2800 200 / 200 Output Total 1000 / 1525 0 / 0 Balance 500 / 1275 200 / 200 Intake: IV Fluids 1500 / 2200 200 / 200 0.9 % Sodium Chloride 1,000 ML 1000 / 1000 0 / 0 @ 100 mls/hr IVC .Q10H [facility] Rx#: [id number] Ofirmev 1,000 mg/100 ml 1,000 200 / 500 100 / 100 mg In 100 ml @ 400 mls/hr IVPB Q6HR [facility] Rx#:[id number] Cipro Premix 400 MG/200 ML 400 200 / 400 mg In 200 ml @ 200 mls/hr IVPB Q12H [facility] Rx#:[id number] Flagyl Premix 500 MG/100 ML 500 100 / 300 100 / 100 mg In 100 ml @ 100 mls/hr IVPB Q8HR [facility] Rx#:[id number] Oral 0 / 600 0 / 0 Output: Urine 1000 / 1525 0 / 0 Other: Weight 107.2 kg Blood Glucose* 249 234 Patient Weight 06/06/18 23:59 Weight 107.2 kg - General physical appearance no distress - Respiratory normal expansion, normal respiratory effort - Cardiovascular Cardiovascular exam: Present: RRR - Abdomen Abdomen: Present: soft, tender (appropriately tender;) - Incision Incision: Present: clean and dry, intact - Neurologic CN 2-12 grossly intact - Labs 06/06/18 03:36 06/06/18 03:36 Diabetes panel 06/06/18 Range/Units 03:36 Sodium 135 L (136-145) mEq/L Potassium 3.2 L (3.5-5.1) mEq/L Chloride 103 (98-107) mEq/L Carbon Dioxide 25 (23-29) mEq/L BUN 8 (6-20) mg/dL Creatinine 0.33 L (0.60-1.20) mg/dL Glucose 252 H (70-105) mg/dL Calcium 8.1 L (8.6-10.3) mg/dL Calcium panel 06/06/18 Range/Units 03:36 Calcium 8.1 L (8.6-10.3) mg/dL Pituitary panel 06/06/18 Range/Units 03:36 Sodium 135 L (136-145) mEq/L Potassium 3.2 L (3.5-5.1) mEq/L Chloride 103 (98-107) mEq/L Carbon Dioxide 25 (23-29) mEq/L BUN 8 (6-20) mg/dL Creatinine 0.33 L (0.60-1.20) mg/dL Glucose 252 H (70-105) mg/dL Calcium 8.1 L (8.6-10.3) mg/dL Adrenal panel 06/06/18 Range/Units 03:36 Sodium 135 L (136-145) mEq/L Potassium 3.2 L (3.5-5.1) mEq/L Chloride 103 (98-107) mEq/L Carbon Dioxide 25 (23-29) mEq/L BUN 8 (6-20) mg/dL Creatinine 0.33 L (0.60-1.20) mg/dL Glucose 252 H (70-105) mg/dL Calcium 8.1 L (8.6-10.3) mg/dL - VTE Reasons for not Prescribing Prophylaxis: Treatment not Indicated - Low risk for VTE Consult Discharge Plan - Plan Instructions: Diabetes Mellitus Type 2 in Adults (DC), Open Herniorrhaphy (DC), Meal Planning with Diabetes Exchanges (DC) Additional Instructions: General Surgical Discharge Instructions 1. No pushing, pulling, or lifting greater than 15 lbs for 6 weeks (depending upon procedure). 2. You may shower beginning today, but no tub baths, soaking, or swimming for 2 weeks. 3. You may resume driving when you are off narcotics and are safe to react in a car. 4. Take ibuprofen every 8 hours for discomfort. If this does not relieve discomfort, you may take the as needed Percocet. Take narcotics as directed. Do not take more narcotics then directed and do not share your narcotics with any other person. Do not drink alcohol while on narcotics. 5. Take stool softeners (Colace) or a water based laxative (Miralax) while taking narcotics. You may hold for loose stools. 6. Report any fevers greater than 100.5F, increase abdominal discomfort, drainage that looks like pus, increased redness or pain at the surgical site, or any vomiting. 7. Report any pain in the calves, shortness of breath, or rapid heartbeat. 8. Follow-up in the office as directed. 9. If you were prescribed antibiotics, do not stop them without talking to your provider. Referrals: Malgorzata Souza CNP [Advanced Practice Nurse] - 06/19/18 11:00 am Esther Mejia CNP [Advanced Practice Nurse] - 06/18/18 1:30 pm
[2018-06-06] MEDS: D5% in 0.45% NACL w KCl 20 MEQ/1,000 ML MLS IVC SCH (16:35)
[2018-06-07] MEDS: OXYCODONE Oral CONC 10 MG/0.5 ML ORAL.SYG SL PRN (02:40)
[2018-06-07 04:20] LABS: Basophils % 0.3 %; Eosinophils # 0.1 K/mcL (0.0-0.6); Eosinophils % 1.5 %; Hematocrit 40.7 % (35.3-44.9); Immature Granulocytes % 0.5 % (0-4); Lymphocytes # 1.8 K/mcL (0.6-4.6); Lymphocytes % 30.2 %; Mean Corpuscular HGB Conc 31.9 g/dL (31.6-35.5); Mean Corpuscular Hemoglobin 28.3 pg (28.0-33.3); Mean Corpuscular Volume 88.5 fL (83.0-100.0); Monocytes # 0.5 K/mcL (0.0-1.3); Neutrophils # 3.6 K/mcL (1.6-8.9); Platelet Count 254 K/mcL (140-400); Red Cell Distribution Width 12.7 % (11.5-14.5); Segmented Neutrophils % 59.5 %
[2018-06-07 04:40] LABS: BUN/Creatinine Ratio 18 (6-26); Blood Urea Nitrogen 5 mg/dL (6-20); Calcium 8.4 mg/dL (8.6-10.3); Carbon Dioxide 24 mEq/L (23-29); Chloride 104 mEq/L (98-107); Glucose 210 mg/dL (70-105); Osmolality,Calculated 285 (280-300); Potassium 3.5 mEq/L (3.5-5.1); Sodium 136 mEq/L (136-145); eGFR For Non-African Americans > 60 (> 60)
[2018-06-07] MEDS: Acetaminophen IV 1,000 MG/100 ML INFUS..BTL IVPB SCH (05:49)
[2018-06-07] MEDS: *HR* Heparin 5,000 UNIT/ML VIAL SQ SCH (05:50)
[2018-06-07 07:04] VITALS: BP 121/79
[2018-06-07] MEDS ORDERED: *HR* OxyCODONE/APAP 5/325 TABLET PO PRN (07:33)
--- NOTE | 2018-06-07 07:35 | Discharge Summary ---
<RobertoEsther Ludmila - Last Filed: 06/07/18 08:42> Date of Encounter: 06/07/18 Time of Encounter: 07:45 - Discharge Diagnosis (1) Recurrent ventral incisional hernia Priority: Primary Status: Acute (2) T2DM (type 2 diabetes mellitus) Priority: Secondary Status: Acute Qualifiers: Diabetes mellitus exterminator helper insulin use: with exterminator helper use Diabetes mellitus complication status: with unspecified complications Qualified Code(s): E11.8 - Type 2 diabetes mellitus with unspecified complications; Z79.4 - intermediate accountant (current) use of insulin (3) Obesity, Class III, BMI 40-49.9 (morbid obesity) Priority: Secondary Status: Acute (4) Nonadherence to medical treatment Priority: Secondary Status: Acute General Surgery Exam Initial Vital Signs Temp Pulse Resp BP Pulse Ox 98.2 F 88 16 140/89 100 06/03/18 22:08 06/03/18 22:08 06/03/18 22:08 06/03/18 22:08 06/03/18 22:08 - General physical appearance no distress, moderate pain, obese - Neck trachea midline - Respiratory normal expansion, normal respiratory effort, clear to auscultation - Cardiovascular Cardiovascular exam: Present: RRR, 15, 16 - Abdomen Abdomen general surgery: Present: bowel sounds present, soft, tender (expected postoperative) - Incision Incision: Present: clean and dry, intact (BONNIE dressing in place) - Integumentary Integumentary general surgery: Present: warm and dry, no abnormal pigmentation - Neurologic Present: CN 2-12 grossly intact, normal coordination, normal sensation - Musculoskeletal Present: normal gait, normal posture - Psychiatric Psychiatric general surgery: Present: appropriate, oriented to person, oriented to place, oriented to time, speech is normal, memory intact - Hospital Course Hospital course: Ms. Oquendo is a 37 year old female who presented on 06/03/2018 with abdominal pain. She was noted to have recurrent incisional hernia. She was taken to the operating room on 06/04/2017 where she underwent an exploratory laparotomy with explantation of mesh and repair of recurrent incisional ventral hernia with mesh. Of note during surgery, she was noted to have herniated uterus. This was reduced without difficulty. Her hospital course was complicated by poorly controlled type II diabetes. She had not taken any of her diabetes medication for approximately 14 months due to reported social issues. Hospitalist were consulted to managed her glucose while in the hospital and provided outpatient prescriptions. We will begin discharge planning to home with a follow-up in the office in approximately 2 weeks into follow-up with PCP in approximately 2 weeks. Time spent discussing smoking cessation with patient: 3 to 10 minutes - Time Spent with Patient Total time spent providing and/or coordinating discharge services: - Discharge Medications Prescriptions: New Docusate [Colace] 100 mg PO BID 30 Days #60 capsule Insulin LISPRO [HumaLOG] 5 units SQ TIDAC 30 Days #3 vial Ibuprofen [Motrin] 800 mg PO Q8HR 30 Days #60 tablet Benzonatate [Tessalon] 100 mg PO TID PRN 10 Days #30 capsule PRN Reason: Cough Insulin Degludec [Tresiba Flextouch U-200] 15 unit SQ DAILY 30 Days #2 insuln.pen Nicotine Patch [Nicoderm] 14 mg TD DAILY patch.td24 OxyCODONE/APAP 5/325 [Percocet 5/325 MG] 1 each PO Q6HR PRN 7 Days #28 tablet PRN Reason: Pain Continued Acetaminophen [Tylenol] 650 mg PO DAILY PRN PRN Reason: Pain Home Medications: Acetaminophen [Tylenol] 650 mg PO DAILY PRN 06/04/18 [History] Benzonatate [Tessalon] 100 mg PO TID PRN 10 Days #30 capsule 06/07/18 [Rx] Docusate [Colace] 100 mg PO BID 30 Days #60 capsule 06/07/18 [Rx] Ibuprofen [Motrin] 800 mg PO Q8HR 30 Days #60 tablet 06/07/18 [Rx] Insulin Degludec [Tresiba Flextouch U-200] 15 unit SQ DAILY 30 Days #2 insuln.pen 06/07/18 [Rx] Insulin LISPRO [HumaLOG] 5 units SQ TIDAC 30 Days #3 vial 06/07/18 [Rx] Nicotine Patch [Nicoderm] 14 mg TD DAILY patch.td24 06/07/18 [Rx] OxyCODONE/APAP 5/325 [Percocet 5/325 MG] 1 each PO Q6HR PRN 7 Days #28 tablet 06/07/18 [Rx] Allergies/Adverse Reactions: Allergy/AdvReac Type Severity Reaction Status Date / Time Iodinated Contrast- Oral and Allergy Hives Verified 06/04/18 10:05 IV Dye Penicillins Allergy "VOMITING/H Verified 06/04/18 10:05 ANNA MARIE" Date of admission: 06/03/18 22:46 Primary care physician: PCP NONE Consults: 06/04/18 02:17 Consult to [facility] [CONS] Routine Reason for SW Consult: financial concerns 06/05/18 08:33 Consult to Hospitalist [CONS] Routine Consulting Provider: Hospitalist Mane Reason for Consult: Uncontrolled T2DM. Consult for inpatient glucose management and d/c medications. Time Notified: 08:36 Call Completed: Yes 06/05/18 08:58 Consult to Nutrition [CONS] Routine Comment: diabetes diet (1800 helen) Consulting Provider: NUTRITION Reason for Dietary Consult: Diet Education Discharging clinician: Mike Mejia) Anticipated date of discharge: 06/07/18 Labs on day of discharge: Labs from last 24 hours 06/07/18 06/07/18 06/06/18 03:24 03:24 19:44 WBC 6.0 RBC 4.60 Hgb 13.0 Hct 40.7 MCV 88.5 MCH 28.3 MCHC 31.9 RDW 12.7 Plt Count 254 MPV 10.0 Immature Gran % 0.5 Seg Neutrophils % 59.5 Lymphocytes % 30.2 Monocytes % 8.0 Eosinophils % 1.5 Basophils % 0.3 Neutrophils # 3.6 Lymphocytes # 1.8 Monocytes # 0.5 Eosinophils # 0.1 Basophils # 0.0 Sodium 136 Potassium 3.5 Chloride 104 Carbon Dioxide 24 BUN 5 L Creatinine 0.28 L Est GFR ( Amer) > 60 Est GFR (Non-Af Amer) > 60 BUN/Creatinine Ratio 18 Glucose 210 H POC Glucose 188 H Calculated Osmolality 285 Calcium 8.4 L 06/06/18 06/06/18 06/06/18 16:50 12:16 07:28 WBC RBC Hgb Hct MCV MCH MCHC RDW Plt Count MPV Immature Gran % Seg Neutrophils % Lymphocytes % Monocytes % Eosinophils % Basophils % Neutrophils # Lymphocytes # Monocytes # Eosinophils # Basophils # Sodium Potassium Chloride Carbon Dioxide BUN Creatinine Est GFR ( Amer) Est GFR (Non-Af Amer) BUN/Creatinine Ratio Glucose POC Glucose 166 H 170 H 234 H Calculated Osmolality Calcium 06/05/18 06/05/18 06/05/18 20:37 16:19 10:52 WBC RBC Hgb Hct MCV MCH MCHC RDW Plt Count MPV Immature Gran % Seg Neutrophils % Lymphocytes % Monocytes % Eosinophils % Basophils % Neutrophils # Lymphocytes # Monocytes # Eosinophils # Basophils # Sodium Potassium Chloride Carbon Dioxide BUN Creatinine Est GFR ( Amer) Est GFR (Non-Af Amer) BUN/Creatinine Ratio Glucose POC Glucose 249 H 287 H 194 H Calculated Osmolality Calcium - Patient Status Disposition: Home, Self-Care Condition: Good Functional capacity at discharge: independent ambulation Overall status at discharge: patient is progressing back to baseline - Discharge Instructions Instructions: Diabetes Mellitus Type 2 in Adults (DC), Open Herniorrhaphy (DC), Meal Planning with Diabetes Exchanges (DC) Follow Up With: Malgorzata Souza CNP [Advanced Practice Nurse] - 06/19/18 11:00 am Esther Mejia CNP [Advanced Practice Nurse] - 06/18/18 1:30 pm Additional Instructions: General Surgical Discharge Instructions 1. No pushing, pulling, or lifting greater than 15 lbs for 6 weeks (depending upon procedure). 2. You may shower beginning today, but no tub baths, soaking, or swimming for 2 weeks. 3. You may resume driving when you are off narcotics and are safe to react in a car. 4. Take ibuprofen every 8 hours for discomfort. If this does not relieve discomfort, you may take the as needed Percocet. Take narcotics as directed. Do not take more narcotics then directed and do not share your narcotics with any other person. Do not drink alcohol while on narcotics. 5. Take stool softeners (Colace) or a water based laxative (Miralax) while taking narcotics. You may hold for loose stools. 6. Report any fevers greater than 100.5F, increase abdominal discomfort, drainage that looks like pus, increased redness or pain at the surgical site, or any vomiting. 7. Report any pain in the calves, shortness of breath, or rapid heartbeat. 8. Follow-up in the office as directed. 9. If you were prescribed antibiotics, do not stop them without talking to your provider. Remove your dressing on Monday06/11/2018 Take your insulin and follow the diabetic diet as directed. Record your blood glucose as directed. Bring these recording with you to your follow-up appointment with you primary care provider. - Diet and Activity Activity: increase activity as tolerated Diet: diabetic diet <Son Dupree Y - Last Filed: 06/07/18 09:47> Date of Encounter: 06/07/18 - Discharge Diagnosis (1) Diabetes mellitus Status: Acute Qualifiers: Diabetes mellitus type: type 2 Diabetes mellitus custodial insulin use: with exterminator helper use Diabetes mellitus complication status: without complication Qualified Code(s): E11.9 - Type 2 diabetes mellitus without complications; Z79.4 - intermediate accountant (current) use of insulin (2) Recurrent ventral incisional hernia Status: Acute (3) Hypokalemia Status: Resolved General Surgery Exam Initial Vital Signs Temp Pulse Resp BP Pulse Ox 98.2 F 88 16 140/89 100 06/03/18 22:08 06/03/18 22:08 06/03/18 22:08 06/03/18 22:08 06/03/18 22:08 - Hospital Course Hospital course: Ms. Oquendo is a 37 year old female - Time Spent with Patient Total time spent providing and/or coordinating discharge services: Date of admission: 06/03/18 22:46 Primary care physician: PCP NONE Consults: 06/04/18 02:17 Consult to [facility] [CONS] Routine Reason for SW Consult: financial concerns 06/05/18 08:33 Consult to Hospitalist [CONS] Routine Consulting Provider: Hospitalist Mane Reason for Consult: Uncontrolled T2DM. Consult for inpatient glucose management and d/c medications. Time Notified: 08:36 Call Completed: Yes 06/05/18 08:58 Consult to Nutrition [CONS] Routine Comment: diabetes diet (1800 helen) Consulting Provider: NUTRITION Reason for Dietary Consult: Diet Education Labs on day of discharge: Labs from last 24 hours 06/07/18 06/07/18 06/07/18 07:41 03:24 03:24 WBC 6.0 RBC 4.60 Hgb 13.0 Hct 40.7 MCV 88.5 MCH 28.3 MCHC 31.9 RDW 12.7 Plt Count 254 MPV 10.0 Immature Gran % 0.5 Seg Neutrophils % 59.5 Lymphocytes % 30.2 Monocytes % 8.0 Eosinophils % 1.5 Basophils % 0.3 Neutrophils # 3.6 Lymphocytes # 1.8 Monocytes # 0.5 Eosinophils # 0.1 Basophils # 0.0 Sodium 136 Potassium 3.5 Chloride 104 Carbon Dioxide 24 BUN 5 L Creatinine 0.28 L Est GFR ( Amer) > 60 Est GFR (Non-Af Amer) > 60 BUN/Creatinine Ratio 18 Glucose 210 H POC Glucose 195 H Calculated Osmolality 285 Calcium 8.4 L 06/06/18 06/06/18 06/06/18 19:44 16:50 12:16 WBC RBC Hgb Hct MCV MCH MCHC RDW Plt Count MPV Immature Gran % Seg Neutrophils % Lymphocytes % Monocytes % Eosinophils % Basophils % Neutrophils # Lymphocytes # Monocytes # Eosinophils # Basophils # Sodium Potassium Chloride Carbon Dioxide BUN Creatinine Est GFR ( Amer) Est GFR (Non-Af Amer) BUN/Creatinine Ratio Glucose POC Glucose 188 H 166 H 170 H Calculated Osmolality Calcium 06/05/18 06/05/18 06/05/18 20:37 16:19 10:52 WBC RBC Hgb Hct MCV MCH MCHC RDW Plt Count MPV Immature Gran % Seg Neutrophils % Lymphocytes % Monocytes % Eosinophils % Basophils % Neutrophils # Lymphocytes # Monocytes # Eosinophils # Basophils # Sodium Potassium Chloride Carbon Dioxide BUN Creatinine Est GFR ( Amer) Est GFR (Non-Af Amer) BUN/Creatinine Ratio Glucose POC Glucose 249 H 287 H 194 H Calculated Osmolality Calcium <Zena,Mike T - Last Filed: 06/07/18 10:46> Date of Encounter: 06/07/18 General Surgery Exam Initial Vital Signs Temp Pulse Resp BP Pulse Ox 98.2 F 88 16 140/89 100 06/03/18 22:08 06/03/18 22:08 06/03/18 22:08 06/03/18 22:08 06/03/18 22:08 - Hospital Course Hospital course: Ms. Oquendo is a 37 year old female - Time Spent with Patient Total time spent providing and/or coordinating discharge services: Date of admission: 06/03/18 22:46 Primary care physician: PCP NONE Consults: 06/04/18 02:17 Consult to [facility] [CONS] Routine Reason for SW Consult: financial concerns 06/05/18 08:33 Consult to Hospitalist [CONS] Routine Consulting Provider: Hospitalist Mane Reason for Consult: Uncontrolled T2DM. Consult for inpatient glucose management and d/c medications. Time Notified: 08:36 Call Completed: Yes 06/05/18 08:58 Consult to Nutrition [CONS] Routine Comment: diabetes diet (1800 helen) Consulting Provider: NUTRITION Reason for Dietary Consult: Diet Education Labs on day of discharge: Labs from last 24 hours 06/07/18 06/07/18 06/07/18 07:41 03:24 03:24 WBC 6.0 RBC 4.60 Hgb 13.0 Hct 40.7 MCV 88.5 MCH 28.3 MCHC 31.9 RDW 12.7 Plt Count 254 MPV 10.0 Immature Gran % 0.5 Seg Neutrophils % 59.5 Lymphocytes % 30.2 Monocytes % 8.0 Eosinophils % 1.5 Basophils % 0.3 Neutrophils # 3.6 Lymphocytes # 1.8 Monocytes # 0.5 Eosinophils # 0.1 Basophils # 0.0 Sodium 136 Potassium 3.5 Chloride 104 Carbon Dioxide 24 BUN 5 L Creatinine 0.28 L Est GFR ( Amer) > 60 Est GFR (Non-Af Amer) > 60 BUN/Creatinine Ratio 18 Glucose 210 H POC Glucose 195 H Calculated Osmolality 285 Calcium 8.4 L 06/06/18 06/06/18 06/06/18 19:44 16:50 12:16 WBC RBC Hgb Hct MCV MCH MCHC RDW Plt Count MPV Immature Gran % Seg Neutrophils % Lymphocytes % Monocytes % Eosinophils % Basophils % Neutrophils # Lymphocytes # Monocytes # Eosinophils # Basophils # Sodium Potassium Chloride Carbon Dioxide BUN Creatinine Est GFR ( Amer) Est GFR (Non-Af Amer) BUN/Creatinine Ratio Glucose POC Glucose 188 H 166 H 170 H Calculated Osmolality Calcium 06/05/18 06/05/18 06/05/18 20:37 16:19 10:52 WBC RBC Hgb Hct MCV MCH MCHC RDW Plt Count MPV Immature Gran % Seg Neutrophils % Lymphocytes % Monocytes % Eosinophils % Basophils % Neutrophils # Lymphocytes # Monocytes # Eosinophils # Basophils # Sodium Potassium Chloride Carbon Dioxide BUN Creatinine Est GFR ( Amer) Est GFR (Non-Af Amer) BUN/Creatinine Ratio Glucose POC Glucose 249 H 287 H 194 H Calculated Osmolality Calcium - Attending Attestation I have personally performed a face to face evaluation on this patient. I have reviewed and agree with the care plan. History and Exam by me shows: The patient is seen and evaluated on morning rounds with the acute care surgery team. Her wound is in excellent condition with a BONNIE dressing. Her pain control is adequate. She is ready for discharge. Follow-up as scheduled for dressing removal Mike Freitas MD FACS
[2018-06-07] MEDS: D5% in 0.45% NACL w KCl 20 MEQ/1,000 ML MLS IVC SCH (07:51)
[2018-06-07] MEDS: 0.9 % Sodium Chloride 1,000 ML IVC SCH (07:52)
[2018-06-07] MEDS ORDERED: Ibuprofen 800 MG TABLET PO SCH (08:00)
--- NOTE | 2018-06-07 08:25 | Internal Med Progress Note ---
Hospitalist Progress Note - Encounter Date of Encounter: 06/07/18 Time of Encounter: 08:22 - Subjective Interval History: I have seen and evaluated the patient at bedside. Patient reports she is feeling better today, reports she has tolerated the full liquid diet, denies having a bowel movement. denies nausea, reports mild abdominal discomfort, denies vo miting, chest pain or shortness of breath. - Exam Vitals: Temp Pulse Resp BP Pulse Ox 98.2 F 75 16 121/79 92 06/07/18 06:58 06/07/18 06:58 06/07/18 06:58 06/07/18 06:58 06/07/18 06:58 Exam: Vitals: Reviewed. General: Alert and oriented 4. In mild distress due to abdominal discomfort Cardiovascular: RRR, normal S1 & S2, no rubs, murmurs or gallops. Lungs: CTA b/l, no wheezes or crackles. Abdomen: Obese, Soft, non-tender, no rigidity. Hypoactive bowel sounds in all 4 quadrants. Extremities: No edema Neurological: Normal cognition Rest of the physical exam is non contributory - Assessment and Plan (1) Diabetes mellitus Current Visit: No Status: Acute Assessment and Plan: blood sugar better controlled on short and long acting insulin patient will be discharged on glargine 15 units daily plus lispro 5 units ac. recommended to follow up with her PCP for possible adjustment on her insulin coverage as outpatient patient was educated about the importance of being compliant with a diet weight lost advised (2) Recurrent ventral incisional hernia Current Visit: Yes Status: Acute Assessment and Plan: plan of care per primary team. (3) Hypokalemia Current Visit: No Status: Resolved DVT Prophylaxis: intermittent pneumatic compression - Time Spent with Patient Total time spent is greater than 50% in coordination of care (as documented) at patient's floor/unit and/or counseling patient: Greater than 35 minutes (40) Plan of Care Discussed with: patient (and the nurse.) Internal Medicine: Result - Labs CBC & Chem 7: 06/07/18 03:24 06/07/18 03:24 Labs: Short CBC 06/07/18 Range/Units 03:24 WBC 6.0 (4.3-11.1) K/mcL Hgb 13.0 (11.5-15.4) g/dL Hct 40.7 (35.3-44.9) % Plt Count 254 (140-400) K/mcL Neutrophils # 3.6 (1.6-8.9) K/mcL BMP 06/07/18 03:24 Sodium 136 Potassium 3.5 Chloride 104 Carbon Dioxide 24 BUN 5 L Creatinine 0.28 L Glucose 210 H Calcium 8.4 L - ABG Interpretation ABG results: PT/INR, D-dimer PT 11.1 Seconds (9.4-12.1) 06/04/18 08:21 - VTE Reasons for not Prescribing Prophylaxis: Treatment not Indicated - Low risk for VTE Consult Discharge Plan - Plan Instructions: Diabetes Mellitus Type 2 in Adults (DC), Open Herniorrhaphy (DC), Meal Planning with Diabetes Exchanges (DC) Additional Instructions: General Surgical Discharge Instructions 1. No pushing, pulling, or lifting greater than 15 lbs for 6 weeks (depending upon procedure). 2. You may shower beginning today, but no tub baths, soaking, or swimming for 2 weeks. 3. You may resume driving when you are off narcotics and are safe to react in a car. 4. Take ibuprofen every 8 hours for discomfort. If this does not relieve discomfort, you may take the as needed Percocet. Take narcotics as directed. Do not take more narcotics then directed and do not share your narcotics with any other person. Do not drink alcohol while on narcotics. 5. Take stool softeners (Colace) or a water based laxative (Miralax) while taking narcotics. You may hold for loose stools. 6. Report any fevers greater than 100.5F, increase abdominal discomfort, drainage that looks like pus, increased redness or pain at the surgical site, or any vomiting. 7. Report any pain in the calves, shortness of breath, or rapid heartbeat. 8. Follow-up in the office as directed. 9. If you were prescribed antibiotics, do not stop them without talking to your provider. 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
[2018-06-07] MEDS ORDERED: Insulin DETEMIR 100 UNIT/ML X5UNITS SQ SCH (09:00)
[2018-06-07] MEDS: Metoclopramide 10 MG/2 ML VIAL IVP ONE ×2 (09:07→10:52)
[2018-06-07] MEDS: Insulin LISPRO 300 UNITS/3 ML VIAL SQ SCH ×2 (09:07→12:26)
[2018-06-07] MEDS: Pantoprazole 40 MG VIAL IVP SCH ×2 (09:07→10:49)
[2018-06-07] MEDS: MetroNIDAZOLE 500 MG/100 ML 500 MG/100 ML BAG IVPB SCH ×2 (09:08→10:49)
[2018-06-07] MEDS: Nicotine 14 MG PATCH.TD24 TD SCH (09:09)
[2018-06-07] MEDS ORDERED: Insulin LISPRO 300 UNITS/3 ML VIAL SQ SCH (12:00)
== END 2018-06-07 14:16 | disposition home or self-care (01) ==
LOC: 3ANU 21:53 → EMEROOARM 21:53 → SUATTDRO 22:46 → 3ANU 23:25
PROVIDERS: ADMIT Surgery; ATTEND Internal Medicine